=== PATIENT | female | born 1970 | race Caucasian/White ===

== ENCOUNTER → 2017-06-16 14:28 | Outpatient (CLI) | payer OTHER, SELFPAY ==
[2017-06-16 15:55] LABS: AST(SGOT) 18 U/L (15-37); Alanine Aminotransfer ALT/SGPT 44 U/L (13-56); Albumin, Serum 3.5 g/dL (3.2-5.0); Alkaline Phosphatase 77 U/L (45-117); Bilirubin, Direct 0.14 mg/dL (0.00-0.30); Protein, Total 6.5 g/dL (6.4-8.2)
== END ==
PROVIDERS: Family Provider Family Medicine; PCP Family Medicine; Visit Provider Family Medicine
DX: J45.909 Unspecified asthma, uncomplicated (principal)
CPT/HCPCS: 36415; 80076

== ENCOUNTER → 2017-07-07 14:25 | Outpatient (CLI) | payer OTHER, SELFPAY | PROVIDERS: Visit Provider Nurse Practitioner Women's Health | DX: N94.9 Unspecified condition associated with female genital organs and menstrual cycle (principal) | CPT/HCPCS: 87070; 87077; 87106; 87205 ==

== ENCOUNTER → 2017-08-14 07:26 | Outpatient (CLI) | payer OTHER, SELFPAY ==
--- NOTE | 2017-08-14 07:29 | BI_ITS ---
MAMMOGRAPHY - BILATERAL SCREENING REASON FOR EXAM: Female, 47 years old. Routine annual screening examination. PERTINENT HISTORY: Non-contributory. TECHNIQUE: Digital bilateral breast delon (3D mammographic acquisition) in the CC and MLO projections. 2-D mediolateral oblique (MLO) and craniocaudad (CC) views of both breasts were obtained. CAD: Full Field Digital Mammography with Computer Added Detection was performed. COMPARISON: Comparison is made with prior abdomen examination dated March 28, 2016. FINDINGS: Breast Composition: The breasts are heterogeneously dense, which may obscure small masses. There are no dominant masses or suspicious calcifications. No other significant abnormalities are identified. There has been no significant change since the prior study. BI/SCREENING MAMM (CAD), BILAT IMPRESSION: Stable bilateral screening mammogram. Yearly follow-up mammogram recommended. (A) ASSESSMENT CATEGORY: BIRADS Category 1: Negative. A letter regarding these results will be sent to the patient by the facility within 30 days. Approximately 10% of breast cancers are not detected by mammography. A normal mammogram should not delay biopsy of a clinically suspicious abnormality. [id number] Electronically Signed: Quintin Bray MD at 9:26 EDT Tel [phone], Service support ,
== END ==
PROVIDERS: Family Provider Family Medicine; PCP Family Medicine; Visit Provider Obstetrics & Gynecology
DX: Z12.31 Encounter for screening mammogram for malignant neoplasm of breast (principal)
CPT/HCPCS: 77063; 77067

== ENCOUNTER → 2018-02-19 14:43 | Outpatient (CLI) | payer OTHER, SELFPAY ==
[2017-09-29 08:01] VITALS: BMI 43.0
--- NOTE | 2018-02-19 14:46 | RAD_ITS ---
HISTORY: PBack PainRAD Spine COMPARISON: None FINDINGS: XR Spine Lumbar 5 views The lumbar vertebra show normal height and alignment. Disc space heights appear preserved. The posterior elements appear intact. No spondylolisthesis. SI joints appear preserved. Surgical clips within the gallbladder fossa. IMPRESSION: Normal lumbar spine. at 0351 Reported and signed by: Ernie Crenshaw MD Electronically Signed: Ernie Crenshaw, at 3:50 EST Tel , Service support , RAD/L/S Spine Min 4 Views
== END ==
PROVIDERS: Family Provider Family Medicine; PCP Family Medicine; Referring Provider Family Medicine; Visit Provider Family Medicine
DX: M54.5 Low back pain (principal); M54.16 Radiculopathy, lumbar region
CPT/HCPCS: 72110

== ENCOUNTER 2018-03-02 17:00 | Outpatient (RCR) | payer OTHER, SELFPAY ==
--- NOTE | 2018-01-15 10:08 | HP.PTEVAL_ITS ---
Patient's Visit Information AMINATA GLEASON is a 47 year old F referred to Physical Therapy by Manuel Ratliff with a diagnosis of Lumbar strain. Date of Evaluation: 01/15/18 Physical Therapist: Shivani Cohen - Visit Plan Frequency: 1-2x /Week Duration: 6 Weeks Plan: 1-2X/ week to see if extension centralization helps with back pain, core stability, LE strength (mostly geared to HEP) and modalities if needed. Also work on postural strength - Subjective Subjective: Pt has been having back pain since July or August and started in one of her hips when she would sit for a while and then go to stand and it would hurt. OFF and on back pain for years. She did a walk in Sep and since then her LB and the other hip started to hurt her. IF she bend just right she will get pain shoot across the LB. Sometimes she will get pain down the legs to mid thigh. Sometimes it is a dull achy pain and sometimes pins and hot in LB. Her pain comes and goes. Not in pain right now. She sits a lot. 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 SHe has been seeing a chiropractor and is helping some but just not improving like she should. Pt is sometimes sleeping at night. It hurts when she sits for awhile and then she stands up and she limps around and then when up for awhile she can walk better. She has tried ice, chiro, massage/heat chair..... she is not doing any ex outside of here. It takes a little bit to go up stairs ( recip up and 1 at a time down)...sometimes uses a railing. Pt reports that all her joints hurt. She is fatigued a lot. Hysterectomy in June of 2016..... - Pain Back Pain Pain Intensity (Out of 10): 0 leg pain Pain Intensity (Out of 10): 0 - Objective Gait: decrease stance time on the R...some increase veering at times with gait. LE MMT: B hip flex 4-/5, knee ext R 4/5 and L 4-/5, R knee flex 4/5 and L 4- /5, B hip abd 4-/5, B hip ext 3-/5, Bridging ( decrease AROM and some increase pain). Trunk AROM: flex 100%, ext 25%, ROT B 75%, SB B 50% (with increase pain). Prone press 2 X 10 ( pt was no better and no worse) She thought that maybe her leg was a little less weak after the press ups. Instructed pt in how to sit with good posture with towel roll at computer desk, car etc - Goals Goal 1:: I HEP Goal Time Frame: 4-6 Weeks Goal 2:: Sit with upright posture during treatment sessions Goal Time Frame: 4-6 Weeks Goal 3:: Decrease back pain to 1/10 through out her workday with good posture Goal Time Frame: 4-6 Weeks Goal 4:: Increase LE strength by 1/2 muscle grade and core strength (at time of eval: LE MMT: B hip flex 4-/5, knee ext R 4/5 and L 4-/5, R knee flex 4/5 and L 4-/5, B hip abd 4-/5, B hip ext 3-/5, Bridging ( decrease AROM and some increase pain) Goal Time Frame: 4-6 Weeks - Rehabilitation Potential Rehabilitation Potential: Good - Anticipated Interventions Patient/Client Instruction: Educate patient on: Condition, Plan of Care For the Purpose of:: To decrease pain, To increase ROM, To improve nutrient delivery to tissue, To improve muscle performance and motor function, To improve ability to perform ADL's, To increase tolerance to activity/condition/position, To improve performance and independence with ADL's, To decrease level of supe rvision to perform tasks, To improve ability of physical actions for home/community/work/leisure, To improve health of tissue, To increase flexibility/ROM Therapeutic Exercise to Include: Strength training, Body mechanics, Postural training, Flexibilty training, In an aquatic setting, Active ROM, Dynamic Lumbar Stabilization, Priscilla Exercises For the Purpose of:: To decrease pain, To increase ROM, To improve nutrient delivery to tissue, To improve muscle performance and motor function, To improve ability to perform ADL's, To increase tolerance to activity/condition/position, To improve performance and independence with ADL's, To improve ability of physical actions for home/community/work/leisure Thank you for the opportunity to evaluate your patient. For Medicare and Medicare HMO plans, please review the plan of care and approve it. It will need to be FAXED BACK to us at [phone] for Medicare purposes. Please let me know if there are questions or concerns regarding this plan of care. Physician Signature: Date:
--- NOTE | 2018-03-02 17:16 | HP.PTDCSUM ---
HP - PT D/C Summary It has been my pleasure to treat AMINATA GLEASON under orders from Manuel Ratliff, for the diagnosis of Lumbar strain for a total of 6 visit(s). Discharge Date: 03/02/18 Please see the following information for a summary of their discharge status. - Subjective Subjective: Pt was approved for MRI which is . Pt feels that back pain has shifted almost more in her tailbone now and it is almost numb. - Pain Back Pain Pain Intensity (Out of 10): 4 leg pain Pain Intensity (Out of 10): 0 - Overall Improvement % Improvement: 0 - Objective Objective/Function: We were unable to do strengthening due to pain level. Posture: pt sits with upright posture during treatment sessions. Pain goal was not achieved. - Goals Goal 1:: I HEP Goal Progress: Goal Met Goal 2:: Sit with upright posture during treatment sessions Goal Progress: Goal Met Goal 3:: Decrease back pain to 1/10 through out her workday with good posture Goal Progress: Not Progressing Goal 4:: Increase LE strength by 1/2 muscle grade and core strength (at time of eval: LE MMT: B hip flex 4-/5, knee ext R 4/5 and L 4-/5, R knee flex 4/5 and L 4-/5, B hip abd 4-/5, B hip ext 3-/5, Bridging ( decrease AROM and some increase pain) Goal Progress: Not Progressing - Plan Plan: DC PT to physician reassessment and MRI. - D/C Information Discharge Comments: DC PT to physician reassessment and MRI If there are questions or concerns regarding this patient's physical therapy, please feel free to call me at [phone]. Thank you for the referral of this patient. Sincerely, Shivani Cohen, MPT
== END 2018-03-02 19:00 | disposition home or self-care (01) ==
LOC: PT 17:00
PROVIDERS: Family Provider Family Medicine; PCP Family Medicine; Referring Provider Chiropractor; Visit Provider Chiropractor
DX: S33.5XXD Sprain of ligaments of lumbar spine, subsequent encounter (principal)
CPT/HCPCS: 97110; 97161; 97530

== ENCOUNTER → 2018-03-04 17:12 | Outpatient (CLI) | payer OTHER, SELFPAY ==
--- NOTE | 2018-03-04 17:13 | MRI_ITS ---
STUDY: MRI LUMBAR SPINE WITHOUT CONTRAST REASON FOR EXAM: Female, 47 years old. Bilateral radiculopathy, worse on the right TECHNIQUE: Standardized fat and water weighted pulse sequences were obtained in the sagittal and axial planes. COMPARISON: Radiographs 02/19/2018 FINDINGS: Transitional anatomy is present. For the purposes of the numbering scheme used in this report, partial lumbarization of S1 is assumed. T12-L1: Normal endplates. Normal disc height, hydration and morphology. Normal bilateral facet joints. Normal central canal and bilateral lateral recesses. Normal bilateral intervertebral neural foramina. Normal lumbar lordosis. There is no substantial scoliosis. Normal conus medullaris that terminates at the L1-2 level. L1-2: Normal endplates. Normal disc height, hydration and morphology. Normal bilateral facet joints. Normal central canal and bilateral lateral recesses. Normal bilateral intervertebral neural foramina. L2-3: Normal endplates. Normal disc height, hydration and morphology. Normal bilateral facet joints. Normal central canal and bilateral lateral recesses. Normal bilateral intervertebral neural foramina. L3-4: Normal endplates. Normal disc height, hydration and morphology. Normal bilateral facet joints. Normal central canal and bilateral lateral recesses. Normal bilateral intervertebral neural foramina. L4-5: Normal disc. Bilateral facet hypertrophy. 8 x 3 mm facet synovial cyst on the right without compressive sequelae. L5-S1: Disc desiccation. Bulging annulus with minimal bilateral foraminal stenoses. Bilateral facet hypertrophy and ligamentum flavum hypertrophy. Normal visualized sacral ala. Normal visualized paraspinous soft tissue structures. MRI/Spine Lumbar (Routine) IMPRESSION: Multilevel degenerative disease as described. Small right-sided facet synovial cyst on the right at the L4-5 level. No evidence of nerve root impingement. Electronically Signed: Chevy Thompson MD at 22:24 EST Tel , Service support ,
== END ==
PROVIDERS: Family Provider Family Medicine; PCP Family Medicine; Referring Provider Family Medicine; Visit Provider Family Medicine
DX: M54.5 Low back pain (principal)
CPT/HCPCS: 72148

== ENCOUNTER → 2018-06-29 | Outpatient (CLI) | payer OTHER, SELFPAY ==
[2017-09-29 08:01] VITALS: BMI 43.0
[2018-06-29 08:36] LABS: Absolute Lymphocyte Count 0.93 X10^3/ul (0.83-4.51); Absolute Neutrophil Count 3.9 X10^3/uL (2.0-7.7); Basophil# 0.02 X10^3/uL; Basophil% 0.4 % (0-1); Eosinophil# 0.09 X10^3/uL; Eosinophils% 1.7 % (0-5); Hematocrit 40.9 % (37-47); Hemoglobin 13.3 g/dl (12.0-15.0); Lymphocyte # 0.93 X10^3/ul (4.0); Lymphocyte % 17.2 % (19-41); Mean Corp Hgb Conc 32.5 g/gl (32-36); Mean Corpuscular Hgb 27.6 pg (27.0-32.0); Mean Corpuscular Volume 84.9 fL (81-99); Mean Platelet Vol. 10.6 fl (6.2-12.0); Monocyte# 0.47 X10^3/uL; Monocyte% 8.7 % (0-10); Neutrophil # 3.89 X10^3/uL (2.7-7.7); Platelet Count 216 K/mm3 (150-450); RBC Distribution Width CV 13.5 % (11.6-14.6); RBC Distribution Width SD 41.8 fl (35.1-43.9); Red Blood Count 4.82 M/mm3 (4.2-5.4); White Blood Count 5.4 K/mm3 (4.4-11.0)
[2018-06-29 08:38] LABS: POSITIVE COUNT NO; POSITIVE DIFFERENTIAL NO; POSITIVE MORPHOLOGY NO
[2018-06-29 09:05] LABS: Vitamin D,25 Hydroxy 11.4 ng/mL (29.95-100.01)
[2018-06-29 09:11] LABS: ALB/GLOB Ratio 1.2 RATIO (0.9-2.4); AST(SGOT) 26 U/L (15-37); Alanine Aminotransfer ALT/SGPT 63 U/L (13-56); Albumin, Serum 3.8 g/dL (3.2-5.0); Alkaline Phosphatase 80 U/L (45-117); Anion Gap 5 (5-15); BUN 13 mg/dL (7-18); BUN/Creat Ratio 18.3 RATIO (10-20); Calcium,Total 8.7 mg/dL (8.5-10.1); Chloride 105 mmol/L (98-107); Cholesterol 125 mg/dL (200); Creatinine, Serum 0.71 mg/dL (0.55-1.02); EST Glomerular Filtration Rate 94 mL/min (>60); Est Glom Filt Rate - Afr Amer 113 mL/min (>60); Globulin 3.1 g/dL (2.2-4.2); Glucose 104 mg/dL (74-106); High Density Lipoprotein 36 mg/dL; Potassium 4.2 mmol/L (3.5-5.1); Protein, Total 6.9 g/dL (6.4-8.2); Sodium Level 139 mmol/L (136-145); T4 Free Direct 1.23 ng/dL (0.76-1.46); Thyroid Stim Hormone (TSH) 2.26 uIU/mL (0.358-3.74); Triglycerides 101 mg/dL; Very Low Density Lipoprotein 20 mg/dL (5-40)
== END | disposition home or self-care (01) ==
LOC: LAB 07:41
PROVIDERS: Family Provider Family Medicine; PCP Family Medicine; Referring Provider Family Medicine; Visit Provider Family Medicine
DX: K75.81 Nonalcoholic steatohepatitis (NASH) (principal); R53.83 Other fatigue; R73.01 Impaired fasting glucose
CPT/HCPCS: 36415; 80053; 80061; 82306; 84439; 84443; 85025

== ENCOUNTER → 2018-11-05 | Outpatient (CLI) | payer OTHER, SELFPAY ==
--- NOTE | 2018-11-05 08:01 | BI_ITS ---
MAMMOGRAPHY - BILATERAL SCREENING REASON FOR EXAM: Female, 48 years old. Routine annual screening examination. PERTINENT HISTORY: Non-contributory. TECHNIQUE: Digital bilateral breast cirilo (3D mammographic acquisition) in the CC and MLO projections. 2-D mediolateral oblique (MLO) and craniocaudad (CC) views of both breasts were obtained. CAD: Full Field Digital Mammography with Computer Added Detection was performed. COMPARISON: Comparison is made with prior study dated August 14, 2017 and March 24, 2013. FINDINGS: Breast Composition: The breasts are heterogeneously dense, which may obscure small masses. There are no dominant masses or suspicious calcifications. Stable bilateral benign-appearing axillary lymph nodes. No other significant abnormalities are identified. There has been no significant change since the prior study. BI/SCREEN MAMM (CAD) W/CIRILO BILAT IMPRESSION: Stable bilateral screening mammogram. Yearly follow-up mammogram recommended. (A) ASSESSMENT CATEGORY: BIRADS Category 2: Benign. A letter regarding these results will be sent to the patient by the facility within 30 days. Approximately 10% of breast cancers are not detected by mammography. A normal mammogram should not delay biopsy of a clinically suspicious abnormality. [id number] Electronically Signed: Quintin Bray, at 10:39 EDT , Service support ,
== END | disposition home or self-care (01) ==
LOC: OPBI 08:01
PROVIDERS: Family Provider Family Medicine; PCP Family Medicine; Referring Provider Obstetrics & Gynecology; Visit Provider Obstetrics & Gynecology
DX: Z12.31 Encounter for screening mammogram for malignant neoplasm of breast (principal)
CPT/HCPCS: 77063; 77067

== ENCOUNTER → 2018-12-23 | Outpatient (CLI) | payer OTHER, SELFPAY ==
[2018-12-23 12:18] LABS: Absolute Lymphocyte Count 1.35 X10^3/uL (0.83-4.51); Absolute Neutrophil Count 4.9 X10^3/uL (2.0-7.7); Basophil# 0.04 X10^3/uL; Basophil% 0.6 % (0-1); Eosinophil# 0.17 X10^3/uL; Eosinophils% 2.5 % (0-5); Hematocrit 41.4 % (37-47); Hemoglobin 12.9 g/dL (12.0-15.0); Lymphocyte # 1.35 X10^3/ul (4.0); Lymphocyte % 19.7 % (19-41); Mean Corp Hgb Conc 31.2 g/dL (32-36); Mean Corpuscular Hgb 27.2 pg (27.0-32.0); Mean Corpuscular Volume 87.2 fL (81-99); Mean Platelet Vol. 10.7 fl (6.2-12.0); Monocyte% 5.8 % (0-10); NRBC Flagged by Analyzer 0 % (0-5); Neutrophil # 4.88 X10^3/uL (2.7-7.7); Platelet Count 243 K/mm3 (150-450); RBC Distribution Width CV 12.6 % (11.6-14.6); RBC Distribution Width SD 40.1 fl (35.1-43.9); Red Blood Count 4.75 M/mm3 (4.2-5.4); White Blood Count 6.9 K/mm3 (4.4-11.0)
[2018-12-23 12:27] LABS: AST(SGOT) 11 U/L (15-37); Alanine Aminotransfer ALT/SGPT 32 U/L (13-56); Albumin, Serum 3.6 g/dL (3.2-5.0); Alkaline Phosphatase 86 U/L (45-117); Anion Gap 5 (5-15); BUN 17 mg/dL (7-18); Calcium,Total 9.1 mg/dL (8.5-10.1); Chloride 104 mmol/L (98-107); Creatinine, Serum 0.63 mg/dL (0.55-1.02); EST Glomerular Filtration Rate 107 mL/min (>60); Est Glom Filt Rate - Afr Amer 130 mL/min (>60); Globulin 3.6 g/dL (2.2-4.2); Glucose 96 mg/dL (74-106); Potassium 4.4 mmol/L (3.5-5.1); Protein, Total 7.2 g/dL (6.4-8.2); Sodium Level 138 mmol/L (136-145)
[2018-12-23 12:34] LABS: Vitamin B12 374 pg/mL (211-911); Vitamin D,25 Hydroxy 24.2 ng/mL (29.95-100.01)
== END | disposition home or self-care (01) ==
LOC: BFHLAB 08:13
PROVIDERS: Family Provider Family Medicine; PCP Family Medicine; Visit Provider Family Medicine
DX: K75.81 Nonalcoholic steatohepatitis (NASH) (principal); E55.9 Vitamin D deficiency, unspecified; R53.83 Other fatigue
CPT/HCPCS: 36415; 80053; 82306; 82607; 85025

== ENCOUNTER 2019-06-08 02:46 | Emergency (ER) | payer SELFPAY ==
[2019-06-08 02:47] VITALS: BP 180/80; PULSE 82; RESP 20; TEMP 36.6; O2SAT 98; BMI 48.7
--- NOTE | 2019-06-08 02:49 | ED.RN ---
RN CALLED FOR EKG, PULLED OLD EKGS FOR
--- NOTE | 2019-06-08 02:55 | CT_ITS ---
STUDY: CTA CHEST REASON FOR EXAM: Female, 48 years old. Chest heaviness. DVT. RADIATION DOSAGE (If Supplied By Facility): CTDIvol = ( 11.48 ) mGy, DLP = ( 480.39 ) mGycm TECHNIQUE: The examination was performed with the intravenous administration of IV 100mL Isovue-370. Post-processing of the angiographic images was performed, with MIP reconstructed images. Individualized dose optimization techniques were used for this CT. COMPARISON: Chest radiograph 08/19/2010 FINDINGS: Heart and great vessels: Heart size normal. No dissection or aneurysm of the thoracic aorta. No pulmonary embolus. No evidence of right heart strain. Lungs, pleura: No pneumonia, edema, or acute abnormality in the lungs. No pleural effusion. No pneumothorax. Mediastinum: No adenopathy or mass or hematoma. Osseous:No fracture or acute osseous abnormality. Chest wall: No concerning findings. Upper abdomen: No acute findings. Hepatic steatosis partially visible. CT/CTA Chest W/WO Contrast IMPRESSION: No pulmonary embolus or thoracic aortic dissection or aneurysm. No acute findings. Electronically Signed: Manuel Blount, at 4:12 EDT Tel , Service support ,
--- NOTE | 2019-06-08 02:55 | EKG12_ITS ---
Test Reason : CHESTHEAVYNESS Blood Pressure : / mmHG Vent. Rate : 075 BPM Atrial Rate : 075 BPM P-R Int : 124 ms QRS Dur : 082 ms QT Int : 386 ms P-R-T Axes : 044 008 055 degrees QTc Int : 431 ms Normal sinus rhythm Minimal voltage criteria for LVH, may be normal variant Borderline ECG Confirmed by GIOVANI SWANSON ([id number]), editor school photograph THU PRIEST ([id number]) on 06/09/2019 10:12:40 AM Referred By: ASTER Confirmed By:GIOVANI SWANSON
[2019-06-08] MEDS: Aspirin 81 MG TAB.CHEW 324 MG PO (02:57)
[2019-06-08 03:02] LABS: Absolute Neutrophil Count 4.7 X10^3/uL (2.0-7.7); Basophil# 0.04 X10^3/uL; Basophil% 0.6 % (0-1); Eosinophil# 0.22 X10^3/uL; Eosinophils% 3.3 % (0-5); Hematocrit 41.3 % (37-47); Hemoglobin 13.3 g/dL (12.0-15.0); Lymphocyte % 16.3 % (19-41); Mean Corp Hgb Conc 32.2 g/dL (32-36); Mean Corpuscular Hgb 27.6 pg (27.0-32.0); Mean Corpuscular Volume 85.7 fL (81-99); Mean Platelet Vol. 9.7 fl (6.2-12.0); Monocyte# 0.66 X10^3/uL; Monocyte% 9.8 % (0-10); NRBC Flagged by Analyzer 0 % (0-5); Neutrophil # 4.69 X10^3/uL (2.7-7.7); Neutrophil % 69.7 % (47-70); Platelet Count 194 K/mm3 (150-450); RBC Distribution Width CV 12.3 % (11.6-14.6); RBC Distribution Width SD 38.1 fl (35.1-43.9); Red Blood Count 4.82 M/mm3 (4.2-5.4); White Blood Count 6.7 K/mm3 (4.4-11.0)
[2019-06-08 03:18] LABS: Anion Gap 6 (5-15); BUN 13 mg/dL (7-18); BUN/Creat Ratio 18.8 RATIO (10-20); Calcium,Total 9.2 mg/dL (8.5-10.1); Chloride 106 mmol/L (98-107); Creatinine, Serum 0.69 mg/dL (0.55-1.02); EST Glomerular Filtration Rate 96 mL/min (>60); Est Glom Filt Rate - Afr Amer 116 mL/min (>60); Estimated Creatinine Clearance 75.24 ml/min; Glucose 120 mg/dL (74-106); Potassium 4.2 mmol/L (3.5-5.1); Sodium Level 138 mmol/L (136-145)
[2019-06-08] MEDS: 0.9% Normal Saline 1,000 ML 150 ML IV (03:25)
[2019-06-08 03:56] VITALS: BP 154/97; PULSE 73
[2019-06-08] MEDS: Nitroglycerin SL (ED/IMG/CATH) 0.4 MG TABLET SUBLINGUAL ×2 (03:56→04:05)
[2019-06-08 04:04] VITALS: BP 149/89; PULSE 77; RESP 14; O2SAT 96
[2019-06-08 04:05] VITALS: BP 149/89; PULSE 75
[2019-06-08] MEDS: Acetaminophen 325 MG Tablet 650 MG PO (04:13)
--- NOTE | 2019-06-08 04:23 | ED.DCSUM_ITS ---
- ER Visit Summary Date of Service: 06/08/19 Chief Complaint: [Chest pain] History of Present Illness: The patient is a 48 F [presents to the emergency department complaint of chest discomfort that started 2 days ago. Patient describes continuous discomfort kind of in the center of her chest and into her left chest that is sharp at times and heavy at times. Patient states she just did not feel well today. Patient recently diagnosed with shingles to her left upper back and was started on valacyclovir. Patient states her symptoms worsened as far as her chest pain since taking the medications. Patient also states that she was diagnosed with a superficial clot in her right arm by her primary care physician about 3 weeks ago when she was started on aspirin and she states that the swelling in the arm is improved significantly and her symptoms are of improved significantly. Patient denies recent travel or surgery. She denies any nausea or vomiting or shortness of breath with this discomfort. Pain seems to be at times worse with activity. She currently rates her discomfort about a 4 5 out of 10. Patient has history of asthma. No heart history. No family history of heart disease. No history of hypertension, diabetes, or hypercholesterolemia. Patient is not a smoker.] Physical Examination: [HEENT-PERRLA, EOMI. Cranial nerves II through XII grossly intact. TMs clear. Mucous membranes moist. No adenopathy. Cardiovascular-regular rate and rhythm without murmur or ectopy Lungs-clear to auscultation, chest wall stable without crepitus or subcu emphysema Abdomen-normoactive bowel sounds, soft, nontender, no rebound or rigidity, no peritoneal signs. Extremities-intact ?4, normal range of motion, normal pulses, atraumatic. Patient does have some edema of the right upper arm medial aspect.] Test Results: [EKG obtained arrival shows sinus rhythm with a ventricular rate of 75 bpm with minimal LVH criteria. CBC with differential was normal. Chemistries unremarkable. Troponin less than 0.015. CTA of the chest showed no evidence for PE or dissection.] Emergency Department Course and Treatment: [Patient had an IV line established. Patient placed on threat monitoring analyst. Patient was given aspirin p.o. Did give her sublingual nitro which gave her headache but really did not change her discomfort.] Treatment Plan: [At this point patient has a SUSANNE risk score of 1 because of the aspirin she has been taken for her right arm. She is considered low risk for cardiac event. She has had ongoing continuous pain for over 2 days with a normal EKG and troponin. At this point I do not feel she requires admission and can follow-up with her primary care physician if symptoms persist.] It is possible some of her symptoms may be related to her herpes zoster. Disposition: [] Discharged home in stable condition. Patient advised to return if worsening pain, increasing shortness of breath, diaphoresis, nausea or vomiting, or condition should worsen anyway. Impression: [Chest pain-etiology uncertain] This note was generated with [employer] dictation software. It may contain incorrect words, spelling, and punctuation that were not noted in review of the chart prior to signing ED Disposition - Plan for ED Patient: Referrals: Bala Oliveira MD [Primary Care Provider] -
--- NOTE | 2019-06-08 04:27 | ED.DEP ---
ED Disposition - Plan for ED Patient: Instructions: ED Chest Pain Atypical Unkn Cause Referrals: Bala Oliveira MD [Primary Care Provider] - 3-5 Days
[2019-06-08 04:31] VITALS: BP 132/76; PULSE 66; RESP 15; O2SAT 95
== END 2019-06-08 04:35 | disposition home or self-care (01) ==
LOC: ED 04:04
PROVIDERS: Emergency Provider Emergency Medicine; PCP Family Medicine
DX: R07.89 Other chest pain (principal); J45.909 Unspecified asthma, uncomplicated
CPT/HCPCS: 71275; 80048; 84484; 85025; 93005; 96360; 99285; J7030; Q9967; A4216

== ENCOUNTER → 2019-08-25 | Outpatient (CLI) | payer SELFPAY ==
[2019-08-18 08:18] VITALS: BMI 48.7
--- NOTE | 2019-08-25 07:05 | BI_ITS ---
MAMMOGRAPHY - BILATERAL SCREENING REASON FOR EXAM: Female, 49 years old. Routine annual screening examination. PERTINENT HISTORY: Non-contributory. TECHNIQUE: Digital bilateral breast cirilo (3D mammographic acquisition) in the CC and MLO projections. 2-D mediolateral oblique (MLO) and craniocaudad (CC) views of both breasts were obtained. CAD: Full Field Digital Mammography with Computer Added Detection was performed. COMPARISON: Comparison is made with prior study November 05, 2018 and August 14, 2017. FINDINGS: Breast Composition: The breasts are heterogeneously dense, which may obscure small masses. There are no dominant masses or suspicious calcifications. Stable small bilateral benign-appearing axillary lymph nodes. No other significant abnormalities are identified. There has been no significant change since the prior study. BI/SCREEN MAMM (CAD) W/CIRILO BILAT IMPRESSION: Stable bilateral screening mammogram. Yearly follow-up mammogram recommended. (A) ASSESSMENT CATEGORY: BIRADS Category 2: Benign. A letter regarding these results will be sent to the patient by the facility within 30 days. Approximately 10% of breast cancers are not detected by mammography. A normal mammogram should not delay biopsy of a clinically suspicious abnormality. [id number] Electronically Signed: Quintin Bray, at 8:11 EDT , Service support ,
== END | disposition home or self-care (01) ==
LOC: OPBI 07:05
PROVIDERS: PCP Family Medicine; Referring Provider Obstetrics & Gynecology; Visit Provider Obstetrics & Gynecology
DX: Z12.31 Encounter for screening mammogram for malignant neoplasm of breast (principal)
CPT/HCPCS: 77063; 77067

== ENCOUNTER 2019-10-07 19:49 | Emergency (ER) | payer OTHER, SELFPAY ==
[2019-08-18 08:18] VITALS: BMI 48.7
[2019-10-07 19:49] VITALS: BP 190/95; PULSE 85; RESP 18; TEMP 36.4; O2SAT 97; BMI 49.1
--- NOTE | 2019-10-07 20:00 | EKG12_ITS ---
Test Reason : CP Blood Pressure : / mmHG Vent. Rate : 078 BPM Atrial Rate : 078 BPM P-R Int : 134 ms QRS Dur : 088 ms QT Int : 392 ms P-R-T Axes : 060 032 060 degrees QTc Int : 446 ms Normal sinus rhythm Possible Left atrial enlargement Septal infarct , age undetermined Abnormal ECG Confirmed by AMBIKA GIORDANO, JAMAL ([id number]), assistant production editor JENNIFER CEDILLO ([id number]) on 10/10/2019 2:35:26 PM Referred By: BB Confirmed By:JAMAL APPLE MD
--- NOTE | 2019-10-07 20:14 | RAD_ITS ---
STUDY: X-RAY CHEST REASON FOR EXAM: Female, 49 years old. Chest pain on and off x 3 weeks. today feels like its fluttering. TECHNIQUE: Frontal view COMPARISON: 08/19/2010 FINDINGS: The lungs are clear and expanded. There is no demonstrated pleural abnormality. Normal size heart. Normal mediastinum and taylor. Normal visualized pulmonary arteries. Normal visualized aortic arch and descending thoracic aorta. Normal visualized thoracic spine. Normal visualized ribs, clavicles, and shoulders. There is no demonstrated abnormality of the visualized soft tissue structures of the upper abdomen. RAD/Chest 1 View (Portable) IMPRESSION: Normal x-ray examination of the chest. Electronically Signed: Ulysses Jean DO at 20:25 EDT Tel [phone], Service support ,
--- NOTE | 2019-10-07 20:42 | ED.VIS.GEN ---
History of Present Illness Chief Complaint: Chest Pain Informant: Patient Narrative: Patient states for the past 3 weeks she has had intermittent left lower chest pain. States it feels like a dull ache sometimes at there for seconds sometimes there for hours. For the first couple weeks it seemed like it was there more frequently than it has been for the past week. Today she has felt a fluttering sensation in that same area. She states that the chest pain is occasionally made worse when she bends over and with certain movements but not to the touch. She has not had this before. She denies any dyspnea. She recently discontinued gabapentin but states that symptoms were ongoing even while on gabapentin. She is a non-smoker. No DVT PE risk factors. Past Medical History - Allergies and Home Meds Allergies/Adverse Reactions: Allergies No Known Allergies Allergy (Verified 10/07/19 19:51) Primary Care Physician: Bala Oliveira MD [Primary Care Provider] - Smoking Status: Former smoker Review of Systems General: Denies: Chills, Fever, Sweats Eyes: Denies: Visual changes - bilaterally, Diplopia ENT: Denies: Rhinorrhea, Sore throat Cardiovascular: Reports: Chest pain, Palpitations. Denies: Heart racing Respiratory: Denies: Dyspnea, Cough, Dyspnea on exertion Gastrointestinal: Denies: Abdominal pain, Nausea, Vomiting, Diarrhea, Melena, Hematochezia Genitourinary: Denies: Dysuria, Hematuria, Frequency Musculoskeletal: Denies: Back pain, Extremity Pain Skin: Denies: Rash, Wounds Neurological: Denies: Headache, Weakness, Numbness Physical Exam Vital Signs/Narrative: Vital Signs Temp Pulse Resp BP Pulse Ox 10/07/19 19:49 97.6 F L 85 18 190/95 H 97 Inital Vital Signs reviewed: Yes General: Well nourished, Well developed, Obese, No Acute Distress Head: Normocephalic, Atraumatic Eyes: Perrl, EOMI ENT: Moist mucous membranes, No rhinorrhea Neck: Supple, Nontender Cardiovascular: Regular rate, Regular rhythm, No murmurs Respiratory: No distress, CTA bilaterally, Chest nontender Abdomen: Soft, Nontender, Nondistended, Normal bowel sounds Back: Nontender, Normal Inspection Extremities: Nontender, No edema Skin: Normal color, No rash Neurological: Alert, Oriented x3, Cranial nerves II-XII grossly intact, Normal Strength, Normal Sensation Psychological: Normal affect, Normal Mood Diagnostic/Tx/Re-eval Clinical Impression(s) from Imaging Studies Chest X-Ray 10/07/19: IMPRESSION: Normal x-ray examination of the chest. Electronically Signed: Ulysses Jean DO at 20:25 EDT Tel [phone], Service support , Laboratory Last Values WBC 7.7 K/mm3 (4.4-11.0) 10/07/19: RBC 4.70 M/mm3 (4.2-5.4) 10/07/19: Hgb 13.1 g/dL (12.0-15.0) 10/07/19: Hct 40.7 % (37-47) 10/07/19: MCV 86.6 fL (81-99) 10/07/19: MCH 27.9 pg (27.0-32.0) 10/07/19 MCHC 32.2 g/dL (32-36) 10/07/19: RDW Std Deviation 39.7 fl (35.1-43.9) 10/07/19: RDW Coeff of Rinku 12.5 % (11.6-14.6) 10/07/19: Plt Count 235 K/mm3 (150-450) 10/07/19: MPV 10.7 fl (6.2-12.0) 10/07/19: Immature Gran % (Auto) 0.300 % (0.0-0.9) 10/07/19: Neut % (Auto) 68.5 % (47-70) 10/07/19: Lymph % (Auto) 20.1 % (19-41) 10/07/19: Haines % (Auto) 8.0 % (0-10) 10/07/19: Eos % (Auto) 2.7 % (0-5) 10/07/19: Baso % (Auto) 0.4 % (0-1) 10/07/19: Absolute Neuts (auto) 5.3 X10^3/uL (2.0-7.7) 10/07/19 20:31 Absolute Lymphs (auto) 1.54 X10^3/uL (0.83-4.51) 10/07/19 20: Nucleated RBC % 0 % (0-5) 10/07/19 20:31 Sodium 138 mmol/L (136-145) 10/07/19 20:31 Potassium 3.8 mmol/L (3.5-5.1) 10/07/19 20: Chloride 104 mmol/L (98-107) 10/07/19 20: Carbon Dioxide 29.0 mmol/L (21.0-32.0) 10/07/19 20:31 Anion Gap 5 (5-15) 10/07/19 20: BUN 11 mg/dL (7-18) 10/07/19 20: Creatinine 0.64 mg/dL (0.55-1.02) 10/07/19 20: Estim Creat Clear Calc 80.24 ml/min 10/07/19 20:31 Est GFR (MDRD) Af Amer 128 mL/min (>60) 10/07/19 20: Est GFR (MDRD) Non-Af 106 mL/min (>60) 10/07/19 20: BUN/Creatinine Ratio 17.3 RATIO (10-20) 10/07/19: Glucose 123 mg/dL (74-106) H 10/07/19 20: Calcium 9.1 mg/dL (8.5-10.1) 10/07/19 20: Troponin I < 0.015 ng/mL (<0.045) 10/07/19 20: - EKG Initial EKG Interpretation: Sinus Rhythm - EKG demonstrates a normal sinus rhythm at a rate of 78. There is no ectopy or concerning features of ACS. - Medical Decision Making She has remained in a normal sinus rhythm as long as she is been here on the monitor. She has a KG with no concerning features and a troponin that is normal. Her symptoms seem to be more musculoskeletal and that they are very localized to one spot and are worse with certain movements including bending over. I recommend she follow-up with primary care return if worsening or concerns patient is comfortable with this plan. SUSANNE score of 0 and a heart score of 2. ED Disposition - Plan for ED Patient: Disposition: Home or Assisted Living Diagnosis: Chest pain Instructions: ED Chest Pain Atypical Unkn Cause Referrals: Bala Oliveira MD [Primary Care Provider] - 1 Week
[2019-10-07 20:54] VITALS: BP 143/71; PULSE 67; RESP 15; O2SAT 96
[2019-10-07 20:57] LABS: Absolute Lymphocyte Count 1.54 X10^3/uL (0.83-4.51); Absolute Neutrophil Count 5.3 X10^3/uL (2.0-7.7); Basophil# 0.03 X10^3/uL; Basophil% 0.4 % (0-1); Eosinophil# 0.21 X10^3/uL; Eosinophils% 2.7 % (0-5); Hematocrit 40.7 % (37-47); Hemoglobin 13.1 g/dL (12.0-15.0); Lymphocyte # 1.54 X10^3/ul (4.0); Lymphocyte % 20.1 % (19-41); Mean Corp Hgb Conc 32.2 g/dL (32-36); Mean Corpuscular Hgb 27.9 pg (27.0-32.0); Mean Corpuscular Volume 86.6 fL (81-99); Mean Platelet Vol. 10.7 fl (6.2-12.0); Monocyte# 0.61 X10^3/uL; NRBC Flagged by Analyzer 0 % (0-5); Neutrophil # 5.26 X10^3/uL (2.7-7.7); Neutrophil % 68.5 % (47-70); Platelet Count 235 K/mm3 (150-450); RBC Distribution Width CV 12.5 % (11.6-14.6); RBC Distribution Width SD 39.7 fl (35.1-43.9); White Blood Count 7.7 K/mm3 (4.4-11.0)
[2019-10-07 21:14] VITALS: BP 143/71; PULSE 68; RESP 17; O2SAT 95
[2019-10-07 21:36] LABS: Anion Gap 5 (5-15); BUN 11 mg/dL (7-18); BUN/Creat Ratio 17.3 RATIO (10-20); Calcium,Total 9.1 mg/dL (8.5-10.1); Chloride 104 mmol/L (98-107); Creatinine, Serum 0.64 mg/dL (0.55-1.02); EST Glomerular Filtration Rate 106 mL/min (>60); Est Glom Filt Rate - Afr Amer 128 mL/min (>60); Estimated Creatinine Clearance 80.24 ml/min; Glucose 123 mg/dL (74-106); Potassium 3.8 mmol/L (3.5-5.1); Sodium Level 138 mmol/L (136-145)
[2019-10-07 21:52] VITALS: BP 144/75; PULSE 68; RESP 13; O2SAT 98
== END 2019-10-07 21:52 | disposition home or self-care (01) ==
PROVIDERS: Emergency Provider Emergency Medicine; PCP Family Medicine
DX: R07.9 Chest pain, unspecified (principal); E66.9 Obesity, unspecified; Z87.891 Personal history of nicotine dependence
CPT/HCPCS: 71045; 80048; 84484; 85025; 93005; 99285; A4216

== ENCOUNTER → 2019-11-03 | Outpatient (CLI) | payer SELFPAY ==
[2019-10-07 19:49] VITALS: BMI 49.1
[2019-11-03 15:47] LABS: Vitamin D,25 Hydroxy 21.8 ng/mL
[2019-11-03 15:49] LABS: Hemoglobin A1c 5.3 % (3.8-5.6)
[2019-11-03 16:00] LABS: Thyroid Stim Hormone (TSH) 2.34 uIU/mL (0.358-3.74)
== END | disposition home or self-care (01) ==
LOC: BFHLAB 12:02
PROVIDERS: PCP Family Medicine; Visit Provider Family Medicine
DX: E55.9 Vitamin D deficiency, unspecified (principal); R73.01 Impaired fasting glucose; R53.83 Other fatigue
CPT/HCPCS: 36415; 82306; 83036; 84443

== ENCOUNTER → 2020-04-23 10:24 | Outpatient (CLI) | payer SELFPAY ==
[2020-01-25 14:48] VITALS: BMI 52.0
[2020-04-23 12:34] LABS: AST(SGOT) 61 U/L (15-37); Alanine Aminotransfer ALT/SGPT 99 U/L (13-56); Albumin, Serum 3.7 g/dL (3.2-5.0); Alkaline Phosphatase 109 U/L (45-117); Bilirubin, Direct 0.14 mg/dL (0.00-0.30); Globulin 3.6 g/dL (2.2-4.2); Protein, Total 7.3 g/dL (6.4-8.2)
== END ==
PROVIDERS: PCP Family Medicine; Visit Provider Family Medicine
DX: K75.81 Nonalcoholic steatohepatitis (NASH) (principal)
CPT/HCPCS: 36415; 80076

== ENCOUNTER → 2020-06-07 09:50 | Outpatient (CLI) | payer SELFPAY ==
[2020-01-25 14:48] VITALS: BMI 52.0
--- NOTE | 2020-06-07 09:53 | RAD_ITS ---
STUDY: X-RAY - LUMBAR SPINE REASON FOR EXAM: Female, 49 years old. LBP TECHNIQUE: 5 view(s) of the lumbar spine were obtained. COMPARISON: 02/19/2018 FINDINGS: Normal lumbar lordosis. There is no substantial scoliosis. There is a normal alignment of the vertebrae. Normal vertebral bodies and endplates. Normal disc space heights. The soft tissue structures are unremarkable. RAD/L/S Spine Min 4 Views IMPRESSION: Normal x-ray examination of the lumbar spine. Electronically Signed: Ric Figueroa MD at 9:38 EDT Tel , Service support ,
== END ==
PROVIDERS: PCP Family Medicine; Referring Provider Family Medicine; Visit Provider Family Medicine
DX: M54.16 Radiculopathy, lumbar region (principal)
CPT/HCPCS: 72110

== ENCOUNTER → 2020-07-13 06:29 | Outpatient (CLI) | payer SELFPAY ==
[2020-01-25 14:48] VITALS: BMI 52.0
--- NOTE | 2020-07-13 06:44 | MRI_ITS ---
STUDY: MRI LUMBAR SPINE WITHOUT CONTRAST REASON FOR EXAM: Female, 49 years old. DDD TECHNIQUE: Standardized fat and water weighted pulse sequences were obtained in the sagittal and axial planes. COMPARISON: MRI lumbar spine without contrast 03/04/2018. FINDINGS: T11-T12: (Sagittal only). Mild anterior wedging of the T11 superior endplate is unchanged. Normal T11 inferior endplate. Normal T12 superior endplate. Normal disc height, hydration and morphology. No ventral extradural defect. Normal central canal and bilateral intervertebral neural foramina. Round focal red to yellow marrow changes in the posterior central T11 vertebral body. T12-L1: (Sagittal only). Normal endplates. Normal disc height, hydration and morphology. No ventral extra dural defect. Normal central canal and bilateral intervertebral neural foramina. Small round posterior L1 benign vertebral body hemangioma. Normal lumbar lordosis. There is no substantial scoliosis. Normal conus medullaris that terminates at the mid T12 vertebral body level. L1-2: Normal endplates. Normal disc height, hydration and morphology. Normal bilateral facet joints. Normal central canal and bilateral lateral recesses. Normal bilateral intervertebral neural foramina. L2-3: Normal endplates. Normal disc height, hydration and morphology. Normal bilateral facet joints. Normal central canal and bilateral lateral recesses. Normal bilateral intervertebral neural foramina. Round L3 central benign vertebral body hemangioma. L3-4: Normal endplates. Normal disc height, hydration and morphology. Normal bilateral facet joints. Normal central canal and bilateral lateral recesses. Normal bilateral intervertebral neural foramina. L4-5: Normal endplates. Normal disc height and morphology. Minimal degenerative retrolisthesis of L4 on L5 is unchanged. Mild central canal stenosis with an AP canal diameter of 10 mm is unchanged. Normal bilateral lateral recesses. Mild asymmetric degenerative facet arthropathy. Normal bilateral intervertebral neural foramina. L5-S1: Normal endplates. Normal disc height, hydration and morphology. Normal bilateral facet joints. Normal central canal and bilateral lateral recesses. Normal bilateral intervertebral neural foramina. Normal visualized sacral ala. Normal visualized paraspinous soft tissue structures. MRI/Spine Lumbar (Routine) IMPRESSION: 1. No MRI evidence of lumbar extruded disc fragment or spinal stenosis. 2. Minimal degenerative retrolisthesis of L4 on L5 and mild central canal stenosis are unchanged. 3. Old anterior wedging of the T11 superior endplate is unchanged. 4. No interval changes or new findings when compared to 03/04/2018. Electronically Signed: Robert Leblanc MD at 11:00 EDT , Service support ,
== END ==
PROVIDERS: PCP Family Medicine; Referring Provider Orthopaedic Surgery; Visit Provider Orthopaedic Surgery
DX: M51.37 Other intervertebral disc degeneration, lumbosacral region (principal)
CPT/HCPCS: 72148

== ENCOUNTER → 2020-08-13 07:28 | Outpatient (CLI) | payer SELFPAY ==
[2020-01-25 14:48] VITALS: BMI 52.0
--- NOTE | 2020-08-13 07:36 | US_ITS ---
STUDY: THYROID ULTRASOUND REASON FOR EXAM: Female, 50 years old. THYROMEGALY ON EXAM,RIGHT CERVICAL LYMPHADENOPATHY TECHNIQUE: Ultrasound evaluation of the thyroid was performed with real-time and static adams-scale imaging. COMPARISON: None. FINDINGS: Scanning of the left side of the neck revealed. 1.5 x 0.6 x 0.4 cm lymph node with fatty hilum seen lateral to the left lobe of the thyroid. No enlarged lymph nodes seen on the right side. US/Head/Neck Soft Tissue IMPRESSION: Benign-looking lymph nodes in the left lung limits as mentioned Electronically Signed: Sunita Vick, at 11:41 EDT Tel , Service support ,
== END ==
PROVIDERS: PCP Family Medicine; Referring Provider Family Medicine; Visit Provider Family Medicine
DX: E04.9 Nontoxic goiter, unspecified (principal)
CPT/HCPCS: 76536

== ENCOUNTER → 2020-08-30 07:18 | Outpatient (CLI) | payer SELFPAY ==
[2020-01-25 14:48] VITALS: BMI 52.0
--- NOTE | 2020-08-30 07:27 | BI_ITS ---
MAMMOGRAPHY - BILATERAL SCREENING REASON FOR EXAM: Female, 50 years old. Routine annual screening examination. PERTINENT HISTORY: Non-contributory. TECHNIQUE: Digital bilateral breast cirilo (3D mammographic acquisition) in the CC and MLO projections. 2-D mediolateral oblique (MLO) and craniocaudad (CC) views of both breasts were obtained. CAD: Full Field Digital Mammography with Computer Added Detection was performed. COMPARISON: Comparison is made with prior examination dated 08/25/2019 and 11/05/2018. FINDINGS: Breast Composition: The breasts are heterogeneously dense, which may obscure small masses. There are no dominant masses or suspicious calcifications. Stable small benign appearing bilateral axillary nodes. No other significant abnormalities are identified. There has been no significant change since the prior study. BI/SCRN MAMM (CAD)W/CIRILO BILAT IMPRESSION: Stable bilateral screening mammogram. Yearly follow-up mammogram recommended. (A) ASSESSMENT CATEGORY: BIRADS Category 2: Benign. A letter regarding these results will be sent to the patient by the facility within 30 days. Approximately 10% of breast cancers are not detected by mammography. A normal mammogram should not delay biopsy of a clinically suspicious abnormality. [id number] Electronically Signed: Quintin Bray MD at 8:29 EDT , Service support ,
== END ==
PROVIDERS: PCP Family Medicine; Referring Provider Obstetrics & Gynecology; Visit Provider Obstetrics & Gynecology
DX: Z12.31 Encounter for screening mammogram for malignant neoplasm of breast (principal)
CPT/HCPCS: 77063; 77067

== ENCOUNTER → 2020-10-15 07:59 | Outpatient (CLI) | payer SELFPAY ==
[2020-10-16 16:18] LABS: Giardia Lamblia, Stool EIA Negative (Negative)
== END ==
PROVIDERS: PCP Family Medicine; Referring Provider Family Medicine; Visit Provider Family Medicine
DX: K75.81 Nonalcoholic steatohepatitis (NASH) (principal); E55.9 Vitamin D deficiency, unspecified; R53.83 Other fatigue; R19.7 Diarrhea, unspecified; R11.0 Nausea
CPT/HCPCS: 87329; 87493; 87506

== ENCOUNTER → 2020-11-20 | Outpatient (CLI) | payer SELFPAY | END | disposition home or self-care (01) | LOC: LABSPEC 17:07 | PROVIDERS: PCP Family Medicine; Referring Provider Obstetrics & Gynecology; Visit Provider Obstetrics & Gynecology | DX: N39.46 Mixed incontinence (principal) | CPT/HCPCS: 87086; 87088 ==

== ENCOUNTER 2021-09-12 09:18 | Day surgery (SDC) | payer SELFPAY ==
[2021-09-12] VITALS (7 sets, daily range): BP systolic 109–149; BP diastolic 65–75; PULSE 55–64; RESP 16–18; TEMP 36.3–36.7; O2SAT 98–100; BMI 50.8
[2021-09-12] MEDS: Lactated Ringers 1,000 ML 30 ML IV (10:01)
--- NOTE | 2021-09-12 10:15 | COLBX_PTH ---
PATIENT: AMINATA GLEASON LOC: EN U#:[id number] AGE/SX: 51/F ROOM: RE09/12/[address]: Dr. Wade Macario DO : 1970 BED: DIS: 09/12/2021 SPEC #: [id number] RECD: 09/12/21 14:12 STATUS: BRIANNA REYandy #: [id number] GENEVA: 09/12/21 10:[address]: Wade Macario DEPT: SURGICAL PATHOLOGY RECD BY: Alisha Benton ENTERED: 09/13/21 08:06 SP TYPE: COLON BX OT DR: Dr. Bala Oliveira MD Tissues: A - Cecum, NOS B - COLON BIOPSY C - Sigmoid colon biopsy Procedures: Surgery Specimen Level IV HEADER OPERATION: Colonoscopy (MAC) PRE-OP DIAGNOSIS: Screening TISSUE SUBMITTED: A ? Ileocecal valve biopsy, B ? Random colon biopsy, C ? Submucosal lesion, sigmoid biopsy MICROSCOPIC DIAGNOSIS A. Ileocecal valve, biopsy: Fragments of small intestinal and colonic mucosa with focal acute inflammation. See comment. B. Colon, random biopsy: Fragments of colonic mucosa, no pathologic diagnosis. C. Sigmoid colon, submucosal lesion, biopsy: A fragment of colonic mucosa, no pathologic diagnosis. SJ:rg 09/16/2021 COMMENT A. Minimal granular distortion is noted. Correlation with clinical, endoscopic findings and appropriate follow up are necessary. MICROSCOPIC DESCRIPTION Slides are reviewed. GROSS DESCRIPTION A - Received in fixative is one container labeled with the patient's name and designated ileocecal valve biopsy. The specimen consists of multiple irregular fragments of light yeager soft tissue that in aggregate measure 0.8 x 0.2 x 0.1 cm. The specimen is totally submitted in one cassette. B - Received in fixative is one container labeled with the patient's name and designated random colon biopsy. The specimen consists of multiple irregular fragments of light yeagre soft tissue that in aggregate measure 1.5 x 1 x 0.1 cm. The specimen is totally submitted in one cassette. C - Received in fixative is one container labeled with the patient's name and designated submucosal lesion, sigmoid. The specimen consists of one irregular fragment of light yeager soft tissue that measures 0.5 x 0.5 x 0.1 cm. The specimen is totally submitted in one cassette. / TIMOTEO:leonel 09/13/2021 TC:2 CPT: 30917 x3
--- NOTE | 2021-09-12 10:17 | PCM.HP.STD ---
HPI - General General Chief Complaint: Screening colonoscopy HPI Narrative AMINATA GLEASON, is a 51 F who presents for screening colonoscopy. She has a past medical history of acute bronchitis acute sinusitis and mild urinary incontinence. She also has a past medical history of asthma. She is not having any chest pain or shortness of breath. She does not have any nausea vomiting, chest pain or shortness of breath. Overall she is in pretty good health. All other 16 review of systems are negative except as per body mentioned HPI. [facility]LY [facility] Medical History (Updated 09/10/21 @ 09:53 by Mary Ivy) Anemia Asthma Back pain Blackout Carpal tunnel syndrome Depression Diabetes Fatty liver Gastric reflux History of depression History of echocardiogram History of edema Leaky heart valve Leg cramps Migraine headache Non-smoker Shortness of breath on exertion Home Medications albuterol sulfate 90 mcg/actuation aerosol inhaler 2 puff inhalation Q6H PRN SOB 11/20/20 [History Last Taken Unknown] cetirizine 10 mg capsule (Zyrtec) 10 mg PO DAILY PRN ALLERGIES 11/20/20 [History Last Taken Unknown] cholecalciferol (vitamin D3) 50 mcg (2,000 unit) capsule 50 mcg PO DAILY 11/20/20 [History Last Taken Unknown] lactobacillus combination no.4 3 billion cell capsule (Probiotic) 3,000 mmu cells PO DAILY 09/10/21 [History Last Taken Unknown] Allergy/AdvReac Type Severity Reaction Status Date / Time No Known Allergies Allergy Verified 09/12/21 09:36 Family History Mother Heart disease Diabetes Father Cancer leukemia Surgical History (Updated 09/10/21 @ 09:53 by Mary Ivy) History of tooth extraction Hx laparoscopic cholecystectomy Hx of abdominal hysterectomy Social History Smoking Status: Never smoker alcohol intake: never substance use type: does not use caffeine: Yes what type of physical activity do you participate in: walking seatbelt use: always do you feel safe at home: Yes 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 ROS Review of Systems ROS Unobtainable: other Constitutional Constitutional: Denies fatigue, fever(s), poor appetite, weight gain or weight loss ENT HEENT: Denies mouth lesions Cardiovascular Cardiovascular: Denies abdominal bloating, abdominal edema or abdominal pain Respiratory/Chest Respiratory/Chest: Denies change in mental status, change in phlegm color, chest congestion or chest tightness Gastrointestinal Gastrointestinal: Denies belching, bloating, change in bowel habits, change in stool character, chewing difficulty, coffee ground emesis, constipation, cramping, diarrhea, dyspepsia, dysphagia, early satiety, excessive flatus, fecal incontinence, heartburn, hematemesis, hematochezia, hemorrhoids, loose stools, melena, nausea, odynophagia, rectal bleeding, tenesmus, vomiting or weight changes Genitourinary Genitourinary: Denies abdominal discomfort, burning urination or itching Musculoskeletal Musculoskeletal: Reports as per HPI; Denies muscle weakness or myalgias Integumentary Integumentary: Denies jaundice Neurologic Neurologic: Denies lack of coordination or weakness Psychiatric Psychiatric: Denies confusion, depression, memory loss, mood swings, paranoia or suicidal ideation Endocrine Endocrinology: Denies systems reviewed and no addt'l complaints, except as documented Hematologic/Lymphatic Hematologic/Lymphatic: Denies anemia, easy bleeding, easy bruising or lymphadenopathy Allergic/Immunologic Allergic/Immunologic: Denies systems reviewed and no addt'l complaints, except as documented Vital Signs Vital Signs Vital Signs: 09/12/21 09:39 09/12/21 09:39 Temperature 98.1 F Temperature Source Temporal Pulse Rate 64 Respiratory Rate 16 Respiratory Pattern Normal Blood Pressure 149/75 H Blood Pressure Mean 99 Blood Pressure Source Monitor Blood Pressure Position Sitting Blood Pressure Location Left Arm Pulse Ox 100 Oxygen Delivery Method Room Air Weight Weight: 268 lb 15.423 oz Body Mass Index (BMI) 50.8 Physical Exam Const alert General Appearance: cooperative Orientation / Consciousness: oriented to person HEENT hearing grossly normal bilaterally Head and Scalp: normal to inspection Face and Sinus: face symmetric Nose: external nose normal Mouth: oral and palatal mucosa normal Eyes conjunctivae normal General Eye: normal appearance of both eyes Neck full ROM General: normal visual inspection Lymph Lymphatic: no lymphadenopathy noted Chest inspection of chest normal and palpation of chest normal Chest: symmetrical chest wall rise Resp normal respiratory effort Effort and Inspection: able to speak in complete sentences Cardio regular rate GI non-distended Percussion: normal to percussion Rectal Exam: deferred Neuro Speech: speech normal Gait (Neuro): normal gait Assessment & Plan Assessment/Plan (1) Encounter for screening for malignant neoplasm of colon: PLAN: She will undergo screening colonoscopy. She was explained alternatives, risk, benefits including not withstanding bleeding, infection, sepsis, perforation, need for emergent or . She will have an ASA of 1.
--- NOTE | 2021-09-12 11:02 | OP.CCLET_ITS ---
11/27/2021 Bala Oliveira Re : Colonoscopy procedure for Diandra Barber Dear Roxanne This procedure was performed on August. My impressions and recommendations are as follows: Impressions : - Localized mild inflammation was found at the ileocecal valve secondary to colitis. Biopsied. - Congested mucosa in the sigmoid colon, in the transverse colon and in the cecum. Biopsied. Recommendations : - Discharge patient to home. - Resume previous diet. - Continue present medications. - Await pathology results. - Repeat colonoscopy in 5 years for surveillance. - Return to GI office. My findings are described in the full procedure note, which is enclosed. If I can be of further assistance, please feel free to contact me at . Sincerely, Wade Macario, 09/12/2021 11:01:53 AM This report has been signed electronically.
--- NOTE | 2021-09-12 11:02 | OP.COLON_ITS ---
Patient Name: Diandra Barber Procedure Date: 09/12/2021 10:21 AM Date of : 1970 Age: 51 Procedure: Colonoscopy Indications: This is the patient's first colonoscopy Providers: Wade Macario DO Medicines: Monitored Anesthesia Care Patient Profile: This is a 51 year old female. Refer to note in patient chart for documentation of history and physical. Last Colonoscopy: date unknown. Unable to locate last colonoscopy report. Complications: No immediate complications. Procedure: Pre-Anesthesia Assessment: - Prior to the procedure, a History and Physical was performed, and patient medications and allergies were reviewed. The risks and benefits of the procedure and the sedation options and risks were discussed with the patient. All questions were answered and informed consent was obtained. Patient identification and proposed procedure were verified by the physician in the pre-procedure area. Mental Status Examination: alert and oriented. Airway Examination: normal oropharyngeal airway and neck mobility. Respiratory Examination: clear to auscultation. CV Examination: normal. Prophylactic Antibiotics: The patient does not require prophylactic antibiotics. Prior Anticoagulants: The patient has taken no previous anticoagulant or antiplatelet agents. ASA Grade Assessment: II - A patient with mild systemic disease. After reviewing the risks and benefits, the patient was deemed in satisfactory condition to undergo the procedure. The anesthesia plan was to use moderate sedation / analgesia (conscious sedation). Immediately prior to administration of medications, the patient was re-assessed for adequacy to receive sedatives. The heart rate, respiratory rate, oxygen saturations, blood pressure, adequacy of pulmonary ventilation, and response to care were monitored throughout the procedure. The physical status of the patient was re-assessed after the procedure. After I obtained informed consent, the scope was passed under direct vision. Throughout the procedure, the patient's blood pressure, pulse, and oxygen saturations were monitored continuously. The pediatric colonoscope was introduced through the anus and advanced to the cecum, identified by appendiceal orifice and ileocecal valve. The terminal ileum, ileocecal valve, appendiceal orifice, and rectum were photographed. Scope In: 10:33:56 AM Scope Withdrawal Time 0 hours 10 minutes 58 seconds Scope Out: 10:47:43 AM Total Procedure Duration Time 0 hours 13 minutes 47 seconds Findings: The perianal and digital rectal examinations were normal. Localized mild inflammation characterized by congestion (edema) and erythema was found at the ileocecal valve. Biopsies were taken with a cold forceps for histology. Verification of patient identification for the specimen was done. Estimated blood loss was minimal. An area of mildly congested mucosa was found in the sigmoid colon, in the transverse colon and in the cecum. Biopsies were taken with a cold forceps for histology. Verification of patient identification for the specimen was done. Estimated blood loss was minimal. Impression: - Localized mild inflammation was found at the ileocecal valve secondary to colitis. Biopsied. - Congested mucosa in the sigmoid colon, in the transverse colon and in the cecum. Biopsied. Recommendation: - Discharge patient to home. - Resume previous diet. - Continue present medications. - Await pathology results. - Repeat colonoscopy in 5 years for surveillance. - Return to GI office. Procedure Code(s): --- Professional --- 18458, Colonoscopy, flexible; with biopsy, single or multiple CPT copyright 2017 [employer]. All rights reserved. The codes documented in this report are preliminary and upon building energy consultant review may be revised to meet current compliance requirements. Wade Macario DO 09/12/2021 11:01:53 AM This report has been signed electronically. Number of Addenda: 1 Note Initiated On: 09/12/2021 10:21 AM Addendum Number: 1 Addendum Date: 11/27/2021 6:13:01 AM MAC was used as sedation for this procedure. Wade Macario DO 11/27/2021 6:13:05 AM This report has been signed electronically.
== END 2021-09-12 11:43 | disposition home or self-care (01) ==
LOC: EN 09:19 → AC 09:22
PROVIDERS: PCP Family Medicine; Referring Provider Family Medicine; Visit Provider Internal Medicine Gastroenterology
PROC: 0DJD8ZZ Inspection of Lower Intestinal Tract, Via Natural or Artificial Opening Endoscopic (ICD-10-PCS; CPT 45378; principal; 2021-09-12 10:10)
DX: Z12.11 Encounter for screening for malignant neoplasm of colon (principal); E11.9 Type 2 diabetes mellitus without complications; K52.9 Noninfective gastroenteritis and colitis, unspecified; K63.89 Other specified diseases of intestine; J45.909 Unspecified asthma, uncomplicated; N39.46 Mixed incontinence; K21.9 Gastro-esophageal reflux disease without esophagitis; Z79.899 Other long term (current) drug therapy
CPT/HCPCS: 88305; J7120; J2405

== ENCOUNTER → 2021-09-24 | Outpatient (CLI) | payer SELFPAY ==
--- NOTE | 2021-09-24 08:05 | BI_ITS ---
MAMMOGRAPHY - BILATERAL SCREENING 3-D TOMOSYNTHESIS REASON FOR EXAM: Female, 51 years old. Annual screening mammogram. PERTINENT HISTORY: No significant family history. TECHNIQUE: 2-D mammograms and 3-D Tomosynthesis of the breast (s) were performed. CAD was performed. COMPARISON: 08/30/2020, 08/25/2019 11/05/2018. FINDINGS: The breast composition is heterogeneously dense that can obscure small breast masses. No dense spiculated masses or suspicious microcalcifications are identified. No architectural distortion is identified. There is no skin thickening or retraction. BI/SCRN MAMM (CAD)W/CIRILO BILAT IMPRESSION: No interval change and no mammographic signs of malignancy. Routine yearly mammograms recommended. ASSESSMENT CATEGORY: BIRADS Category 1: Negative. A letter regarding these results will be sent to the patient by the facility within 30 days. FOLLOW UP RECOMMENDATION: Yearly follow up mammogram recommended. (A) Approximately 10% of breast cancers are not detected by mammography. A normal mammogram should not delay biopsy of a clinically suspicious abnormality. Electronically Signed: Naun Tobar MD at 10:36 EDT ,
== END | disposition home or self-care (01) ==
LOC: OPBI 08:03
PROVIDERS: PCP Family Medicine; Visit Provider Obstetrics & Gynecology
DX: Z12.31 Encounter for screening mammogram for malignant neoplasm of breast (principal)
CPT/HCPCS: 77063; 77067

== ENCOUNTER → 2022-06-17 | Outpatient (CLI) | payer SELFPAY ==
[2022-06-17 13:01] LABS: Absolute Lymphocyte Count 0.93 X10^3/uL (0.83-4.51); Absolute Neutrophil Count 4.3 X10^3/uL (2.0-7.7); Basophil# 0.02 X10^3/uL; Basophil% 0.3 % (0-1); Eosinophil# 0.22 X10^3/uL; Eosinophils% 3.8 % (0-5); Hematocrit 41.1 % (37-47); Hemoglobin 12.6 g/dL (12.0-15.0); Lymphocyte # 0.93 X10^3/ul (0.83-4.51); Lymphocyte % 15.9 % (19-41); Mean Corp Hgb Conc 30.7 g/dL (32-36); Mean Corpuscular Hgb 27.1 pg (27.0-32.0); Mean Corpuscular Volume 88.4 fL (81-99); Mean Platelet Vol. 10.5 fl (6.2-12.0); Monocyte# 0.34 X10^3/uL; Monocyte% 5.8 % (0-10); NRBC Flagged by Analyzer 0 % (0-5); Neutrophil # 4.32 X10^3/uL (2.7-7.7); Neutrophil % 73.9 % (47-70); Platelet Count 239 K/mm3 (150-450); RBC Distribution Width CV 13.4 % (11.6-14.6); RBC Distribution Width SD 43.5 fl (35.1-43.9); Red Blood Count 4.65 M/mm3 (4.2-5.4); White Blood Count 5.9 K/mm3 (4.4-11.0)
[2022-06-17 13:35] LABS: Vitamin B12 1478 pg/mL (211-911); Vitamin D,25 Hydroxy 38.6 ng/mL
[2022-06-17 13:54] LABS: ALB/GLOB Ratio 0.8 RATIO (0.9-2.4); AST(SGOT) 18 U/L (15-37); Alanine Aminotransfer ALT/SGPT 36 U/L (13-56); Albumin, Serum 3.4 g/dL (3.2-5.0); Alkaline Phosphatase 90 U/L (45-117); Anion Gap 4 (5-15); BUN 10 mg/dL (7-18); BUN/Creat Ratio 14.2 RATIO (10-20); Calcium,Total 8.8 mg/dL (8.5-10.1); Chloride 105 mmol/L (98-107); Cholesterol 151 mg/dL (200); EST Glomerular Filtration Rate 93 mL/min (>60); Est Glom Filt Rate - Afr Amer 112 mL/min (>60); Globulin 4.2 g/dL (2.2-4.2); Glucose 110 mg/dL (74-106); High Density Lipoprotein 45 mg/dL; Potassium 4.6 mmol/L (3.5-5.1); Protein, Total 7.6 g/dL (6.4-8.2); Sodium Level 137 mmol/L (136-145); Thyroid Stim Hormone (TSH) 1.74 uIU/mL (0.358-3.74); Triglycerides 101 mg/dL; Very Low Density Lipoprotein 20 mg/dL (5-40)
== END | disposition home or self-care (01) ==
LOC: BFHLAB 08:07
PROVIDERS: PCP Nurse Practitioner Family; Referring Provider Nurse Practitioner Family; Visit Provider Nurse Practitioner Family
DX: Z00.01 Encounter for general adult medical examination with abnormal findings (principal); Z13.21 Encounter for screening for nutritional disorder
CPT/HCPCS: 36415; 80053; 80061; 82306; 82607; 84443; 85025

== ENCOUNTER → 2022-07-25 | Outpatient (CLI) | payer SELFPAY ==
--- NOTE | 2022-07-25 08:59 | BI_ITS ---
MAMMOGRAPHY - BILATERAL DIAGNOSTIC REASON FOR EXAM: Female, 51 years old. Asymmetrical enlargement of the right breast. PERTINENT HISTORY: Non-contributory. TECHNIQUE: Digital bilateral breast delon (3D mammographic acquisition) in the CC and MLO projections. 2-D mediolateral oblique (MLO) and craniocaudad (CC) views of both breasts were obtained. CAD: Full Field Digital Mammography with Computer Added Detection was performed. COMPARISON: Comparison is made with prior study dated September 24, 2021 and August 30, 2020. FINDINGS: Breast Composition: The breasts are heterogeneously dense, which may obscure small masses. There are no dominant masses or suspicious calcifications. No other significant abnormalities are identified. There has been no significant change since the prior study. BI/DIAG MAMM W/CAD, BILAT IMPRESSION: Stable bilateral diagnostic mammogram. With the patient''s history of enlargement of the right breast, correlation with ultrasound is recommended. ASSESSMENT CATEGORY: BIRADS Category 0: Incomplete. Need additional imaging evaluation. A letter regarding these results will be sent to the patient by the facility within 30 days. Approximately 10% of breast cancers are not detected by mammography. A normal mammogram should not delay biopsy of a clinically suspicious abnormality. Electronically Signed: Quintin Bray MD at 10:28 EDT ,
--- NOTE | 2022-07-25 08:59 | US_ITS ---
STUDY: ULTRASOUND BREAST - RIGHT REASON FOR EXAM: Female, 51 years old. Enlargement of the right breast. TECHNIQUE: Axial and longitudinal images of the RIGHT breast were performed with a high resolution ultrasound transducer. # OF IMAGES: 32 COMPARISON: Comparison is made with prior mammogram dated July 25, 2022. FINDINGS: RIGHT Breast: The upper outer quadrant of the right breast was examined with ultrasound. There is evidence of heterogeneous fibroglandular tissue. Dilated ducts are seen at that site. US/Breast Limited Unilateral IMPRESSION: Dilated ducts seen at the 11:00 position of the breast at 9 cm from the nipple. ASSESSMENT CATEGORY: BIRADS Category 2: Benign. A letter regarding these results will be sent to the patient by the facility within 30 days. Electronically Signed: Quintin Bray MD at 8:35 EDT ,
== END | disposition home or self-care (01) ==
PROVIDERS: PCP Nurse Practitioner Family; Referring Provider Obstetrics & Gynecology; Visit Provider Obstetrics & Gynecology
DX: N63.10 Unspecified lump in the right breast, unspecified quadrant (principal)
CPT/HCPCS: 76642; 77062; 77066; G0279

== ENCOUNTER 2022-08-29 07:00 | Outpatient (RCR) | payer SELFPAY ==
--- NOTE | 2022-06-09 13:16 | HP.PTEVAL_ITS ---
Patient's Visit Information AMINATA GLEASON is a 51 year old F referred to Physical Therapy by Dr. Mily Cotton MD with a diagnosis of STRESS INCONTINENCE AND OVER-ACTIVE BLADDER. Date of Evaluation: 06/09/22 Physical Therapist: Sanjuanita Ball PT, Cert MDT - Visit Plan Frequency: 1x/Week Duration: 8-12 WKS Plan: PELVIC FLOOR STRENGTHENING. URINARY RETENTION, URGE AND FREQUENCY EDUCATION. HEALTHY BLADDER HABIT EDUCATION. TRAINING IN COORDINATION OF PELVIC FLOOR MUSCULATURE WITH HIP AND CORE (TRANSVERSE ABDOMINUS) MUSCULATURE. POSTURE CORRECTION/STRENGTHENING. CORE STRENGTHENING. MAURA LE ROM, STRETCHING AND STRENGTHENING. TRAINING IN ABDOMINAL CAVITY PRESSURE MGMT WITH ADL'S. 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 Disability: NO. Present symptoms: FREQUENT URINATION. NOT ABLE TO HOLD IT. SOME LEAKING OF URINE TOO. PATIENT DENIES PAIN ASSOCIATED WITH URINARY INCONTINENCE. Present since: ABOUT 18 MONTHS AGO. Pain Scale: N/A. Is it getting better, worse or staying the same: GETTING BETTER WITH NEW MEDICATION GEMTESA PRESCRIBED BY DR. COTTON. Commenced as a result of: NO APPARENT REASON. Worse: lemonade, soda pop, when ill, when nervous. Better: Gemtesa. Disturbed sleep: GETTING UP TO URINATE AT NIGHT ONE OR LESS TIMES PER NIGHT. Previous history/Previous treatment: UNREMARKABLE. Treatment this episode: GEMTESA. Coughing/sneezing/straining: Occasional Leaking of urine. Gait: NORMAL. How long can you delay the need to urinate: A MINUTE OR LESS PRIOR TO TAKING GEMTESA. NOW CAN DELAY 2-3 MINUTES (IT IS NOT URGENT WHAT IT WAS BEFORE THE MEDICAITON). Prolapse (Falling out fe eling): NO. Frequency of Urination: BEFORE GEMTESA ABOUT EVERY 60 TO 90 MINUTES NOW CAN WAIT 2 TO 2.5 HRS. Ability to stop urine flow: USUALLY NO. Ability to initiate urine stream: NO. Dyspareunia: NO. Bowel Incontinence: RARE FECAL SMEARING BASED ON CERTAIN FOODS SINCE GALBLADDER REMOVED. Accidents: NO. Unexplained weight loss: NO. Imaging: X-RAYS AND MRI OF LOW BACK ABOUT A YEAR OR TWO AGO SHOWING DDD AND ARTHRITIS PER PATIENT REPORT. PMH/Recent major surgery: ANEMIA, ASTHMA, DEPRESSION, FATTY LIVER, GASTRIC REFLUX, EDEMA, LEAKY HEART VALVE, COAGULANT DISORDER. TOOTH EXTRACTION, ABDOMINAL HYSTERECTOMY, GALLBLADDER REMOVAL AND R CARPAL TUNNEL SX. OTHER: PATIENT REPORTS SHE WAS EXERCISING UNTIL SHE GOT SICK IN MAR 2022 AND AGAIN IN APRIL 2022. SHE REPORTS SHE WALKS ON A TREADCLIMBER AND WALKING VIDEO'S. - Objective Sitting/Standing Posture: POOR. FH. RSH'S. NORMAL TO INCREASED LORDOSIS. Other Observations: INDEP GAIT AND TRANSFERS. Sensory deficit: MAURA LE LIGHT TOUCH SENSATION GROSSLY INTACT AND SYMMETRICAL. ROM deficit: MAURA LE HIP ADD TIGHTNESS AND PIRIFORMIS TIGHTNESS. Motor deficit: MAURA LE 'S GROSSLY 5/5 WITH MMT'ING EXCEPT HIPS 4/5. Reflexes: UNABLE TO ELICIT MAURA LE DTR'S. Dural Signs: NEGATIVE MAURA LE'S. Lumbar mvmt loss: flex - NIL. ext - NIL. R SG - MIN. L SG - MIN. MILD TEMPORARY INCREASED LBP WITH LUMBAR MAURA SG TESTING. Core strength: POOR. Palpation: NO INTERNAL PELVIC FLOOR EXAM TODAY. DISCUSSED POSSIBLE BENEFITS OF MANUAL INTERNAL PELVIC FLOOR TESTING AND BIOFEEDBACK FOR STRENGTHENING AND PATIENT WILL CONSIDER IF NEEDED. PATIENT COMMUNICATES A FAIR UNDERSTANDING OF HOW TO CONTRACT PELVIC FLOOR AND COMMUNICATES ABILITY TO CONTRACT PF X APPROX 2 SEC AT A TIME. COMMUNICATED A GOOD UNDERSTANDING OF HOW TO DO QUICK FLICK KEGELS GIVEN BELOW. FUNCTIONAL SCREEN: Incontinence Impact Questionnaire Score: 15. Urogenital Distress Inventory Score: 8. TREATMENT: THER ACT - INITIATED HEP WITH DIAPHRAGMATIC BREATHING X 5 MINUTES A DAY AND QUICK FLICK KEGELS X 8, 3 TIMES A DAY. ALSO INSTRUCTED PATEINT IN USE OF DIAPHRAGMATIC BREATHING TO DECREASE URINARY URGE. PATIENT DEMONSTRATED/COMMUNICATED A GOOD UNDERSTANDING AFTER INSTRUCTIONS GIVEN. - Goals Goal 1:: DECREASE URINARY LEAKAGE EPISODES TO ONE OR LESS PER DAY Goal Time Frame: 4-6 Weeks Goal 2:: PATIENT WILL SUCCESSFULLY DELAY VOIDING FOR 15 MINUTES WHEN URGENCY OCCURS Goal Time Frame: 6-8 Weeks Goal 3:: PATIENT WILL HAVE INCREASED PELVIC FLOOR MUSCLE STRENGTH GRADE TO 5/5 Goal Time Frame: 8-12 Weeks Goal 4:: PATIENT WILL DEMONSTRATE/COMMUNICATE 10 CONSISTENT AND CONSECUTIVE 10 SECOND PELVIC FLOOR MUSCLE CONTRACTIONS TO DEMONSTRATE IMPROVED PELVIC FLOOR ENDURANCE. Goal Time Frame: 8-12 Weeks Goal 5:: DEVELOP HEALTHY FLUID INTAKE HABITS WITH FLUID INTAKE OF ? BODY WEIGHT IN OUNCES PER DAY AND 2/3 BEING WATER. NORMALIZE VOIDING FREQUENCEY TO EVERY 3- 4 HOURS. Goal Time Frame: 4-6 Weeks Goal 6:: PATIENT WILL BE INDEP WITH A HEP/HOME INSTRUCTIONS FOR CONTINUED IMPROVEMENT ONCE FORMAL PHYSICAL THERAPY CONCLUDES. Goal Time Frame: 8-12 Weeks - Anticipated Interventions Patient/Client Instruction: Educate patient on: Condition, Plan of Care, Risk Factors For the Purpose of:: To improve self management Therapeutic Exercise to Include: Strength training, Endurance training, Flexibilty training, Neuromotor development For the Purpose of:: To improve muscle performance and motor function, To increase tolerance to activity/condition/position, To improve ability of physical actions for home/community/work/leisure Manual Therapy Techniques to Include: Soft tissue mobilization, Other Comment: STM NEEDED AND BIOFEEDBACK For the Purpose of:: To improve muscle performance and motor function Thank you for the opportunity to evaluate your patient. For Medicare and Medicare HMO plans, please review the plan of care and approve it. It will need to be FAXED BACK to us at [phone] for Medicare purposes. For Medicare only, by signing this I certify the plan of care. Please let me know if there are questions or concerns regarding this plan of care. Physician Signature: Date:
--- NOTE | 2022-08-29 07:52 | HP.PTDCSUM ---
Discharge Summary D/C summary: It has been my pleasure to treat AMINATA GLEASON referred by Dr. Mily Steinberg MD, with the diagnosis of STRESS INCONTINENCE AND OVER-ACTIVE BLADDER for a total of 8 visit(s). Discharge Date: Please see the following information for a summary of their discharge status. Subjective Subjective: PATIENT REPORTS SHE CAN MANAGE HER URGE BETTER NOW. STATES SHE ISN'T NEEDING TO GO TO THE BATHROOM EVERY HOUR NOW AND SHE CAN GET THERE SUCCESSFULLY, CALMLY MORE OFTEN. STATES SHE FEELS CALMER ABOUT GOING PLACES NOW BECAUSE SHE DOESN'T HAVE TO WORRY ABOUT GOING TO THE BATHROOM MUCH. Pain PELVIC PAIN: Pain Intensity (Out of 10): 1 Overall Improvement % Improvement: 90 Objective Objective/Function: ALL GOALS MET. PATIENT IS INDEP WITH A HEP AND REPORTS 90% IMPROVEMENT IN HER UI SX'S. SHE IS AGREEABLE TO AND APPROPRIATE FOR DISCHARGE. FUNCTIONAL SCREEN (IMPROVED): Incontinence Impact Questionnaire Score: 0 (15 AT EVAL). Urogenital Distress Inventory Score: 3 (8 AT EVAL). Goals Goal 1:: DECREASE URINARY LEAKAGE EPISODES TO ONE OR LESS PER DAY Goal Progress: Goal Met Goal 2:: PATIENT WILL SUCCESSFULLY DELAY VOIDING FOR 15 MINUTES WHEN URGENCY OCCURS Goal Progress: Goal Met Goal 3:: PATIENT WILL HAVE INCREASED PELVIC FLOOR MUSCLE STRENGTH GRADE TO 5/5 Goal Progress: Goal Met Subjectively Goal 4:: PATIENT WILL DEMONSTRATE/COMMUNICATE 10 CONSISTENT AND CONSECUTIVE 10 SECOND PELVIC FLOOR MUSCLE CONTRACTIONS TO DEMONSTRATE IMPROVED PELVIC FLOOR ENDURANCE. Goal Progress: Goal Met Goal 5:: DEVELOP HEALTHY FLUID INTAKE HABITS WITH FLUID INTAKE OF ? BODY WEIGHT IN OUNCES PER DAY AND 2/3 BEING WATER. NORMALIZE VOIDING FREQUENCEY TO EVERY 3-4 HOURS. Goal Progress: Goal Met Goal 6:: PATIENT WILL BE INDEP WITH A HEP/HOME INSTRUCTIONS FOR CONTINUED IMPROVEMENT ONCE FORMAL PHYSICAL THERAPY CONCLUDES. Goal Progress: Goal Met Plan Plan: D/C D/C Information d/c sentence: If there are questions or concerns regarding this patient's physical therapy, please feel free to call me at [phone]. Thank you for the referral of this patient. Sincerely, Sanjuanita Ball, PT, Cert MDT
== END 2022-08-29 19:00 | disposition home or self-care (01) ==
LOC: PT 07:00
PROVIDERS: PCP Family Medicine; Visit Provider Urology
DX: N39.3 Stress incontinence (female) (male) (principal); N32.81 Overactive bladder
CPT/HCPCS: 97162; 97530

== ENCOUNTER → 2022-11-10 | Outpatient (CLI) | payer SELFPAY ==
[2022-11-10 18:04] LABS: Anion Gap 6 (5-15); BUN 22 mg/dL (7-18); BUN/Creat Ratio 20.8 RATIO (10-20); Calcium,Total 9.1 mg/dL (8.5-10.1); Chloride 100 mmol/L (98-107); Creatinine, Serum 1.06 mg/dL (0.55-1.02); EST Glomerular Filtration Rate 58 mL/min (>60); Est Glom Filt Rate - Afr Amer 70 mL/min (>60); Glucose 108 mg/dL (74-106); Potassium 4.1 mmol/L (3.5-5.1); Sodium Level 135 mmol/L (136-145)
== END | disposition home or self-care (01) ==
LOC: BFHLAB 14:24
PROVIDERS: PCP Family Medicine; Referring Provider Family Medicine; Visit Provider Family Medicine
DX: I10 Essential (primary) hypertension (principal)
CPT/HCPCS: 36415; 80048

== ENCOUNTER → 2023-06-01 | Outpatient (CLI) | payer SELFPAY ==
--- NOTE | 2023-06-01 09:53 | RAD_ITS ---
STUDY: X-RAY - CERVICAL SPINE REASON FOR EXAM: Female, 52 years old. Arm and hand tingling, numbness TECHNIQUE: 5 view(s) of the cervical spine were obtained. COMPARISON: None FINDINGS: Normal anterior atlantoaxial articulation. Normal odontoid process. Normal cervical lordosis. Normal vertebral bodies and endplates. Normal disc space heights. Normal visualized intervertebral neuroforamina. The soft tissue structures are unremarkable. RAD/Cerv Spine 4 or 5 Views IMPRESSION: Normal x-ray examination of the visualized cervical spine. Electronically Signed: Parmjit Pike MD at 8:13 EDT ,
--- NOTE | 2023-06-01 09:53 | RAD_ITS ---
STUDY: X-RAY - RIGHT SHOULDER REASON FOR EXAM: Female, 52 years old. Pain, decreased range of motion TECHNIQUE: 4 view(s) of the shoulder. COMPARISON: None. FINDINGS: Normal glenohumeral articulation. Normal acromioclavicular joint. Normal acromion. Normal humeral head and visualized proximal humerus. The soft tissue structures are unremarkable. Normal visualized pulmonary apex. RAD/Shoulder min 2 Views IMPRESSION: Normal x-ray examination of the shoulder. Electronically Signed: Parmjit Pike MD at 8:13 EDT ,
[2023-06-01 12:35] LABS: Absolute Lymphocyte Count 1.09 X10^3/uL (0.83-4.51); Absolute Neutrophil Count 4.3 X10^3/uL (2.0-7.7); Basophil# 0.02 X10^3/uL; Basophil% 0.3 % (0-1); Eosinophil# 0.18 X10^3/uL; Hematocrit 39.2 % (37-47); Hemoglobin 12.2 g/dL (12.0-15.0); Lymphocyte # 1.09 X10^3/ul (0.83-4.51); Lymphocyte % 18.2 % (19-41); Mean Corp Hgb Conc 31.1 g/dL (32-36); Mean Corpuscular Hgb 27.4 pg (27.0-32.0); Mean Corpuscular Volume 88.1 fL (81-99); Mean Platelet Vol. 10.4 fl (6.2-12.0); Monocyte# 0.35 X10^3/uL; Monocyte% 5.8 % (0-10); NRBC Flagged by Analyzer 0 % (0-5); Neutrophil # 4.32 X10^3/uL (2.7-7.7); Neutrophil % 72.2 % (47-70); Platelet Count 229 K/mm3 (150-450); RBC Distribution Width CV 13.1 % (11.6-14.6); Red Blood Count 4.45 M/mm3 (4.2-5.4)
[2023-06-01 12:57] LABS: Vitamin D,25 Hydroxy 36.5 ng/mL
[2023-06-01 13:37] LABS: ALB/GLOB Ratio 1.2 RATIO (0.9-2.4); AST(SGOT) 35 U/L (15-37); Alanine Aminotransfer ALT/SGPT 59 U/L (13-56); Albumin, Serum 3.6 g/dL (3.2-5.0); Alkaline Phosphatase 79 U/L (45-117); Anion Gap 7 (5-15); BUN 13 mg/dL (7-18); BUN/Creat Ratio 21.3 RATIO (10-20); Calcium,Total 9.3 mg/dL (8.5-10.1); Chloride 103 mmol/L (98-107); Cholesterol 159 mg/dL (200); Creatinine, Serum 0.61 mg/dL (0.55-1.02); EST Glomerular Filtration Rate 109 mL/min (>60); Est Glom Filt Rate - Afr Amer 132 mL/min (>60); Glucose 108 mg/dL (74-106); High Density Lipoprotein 41 mg/dL; Potassium 4.2 mmol/L (3.5-5.1); Protein, Total 6.6 g/dL (6.4-8.2); Sodium Level 137 mmol/L (136-145); Triglycerides 134 mg/dL; Very Low Density Lipoprotein 27 mg/dL (5-40)
== END | disposition home or self-care (01) ==
PROVIDERS: PCP Family Medicine; Referring Provider Family Medicine; Visit Provider Family Medicine
DX: Z00.01 Encounter for general adult medical examination with abnormal findings (principal); E55.9 Vitamin D deficiency, unspecified; I10 Essential (primary) hypertension; M25.511 Pain in right shoulder; M54.2 Cervicalgia; R20.0 Anesthesia of skin
CPT/HCPCS: 36415; 72050; 73030; 80053; 80061; 82306; 85025

== ENCOUNTER → 2023-09-16 | Outpatient (CLI) | payer SELFPAY | END | disposition home or self-care (01) | LOC: LABSPEC 11:33 | PROVIDERS: Referring Provider Obstetrics & Gynecology; Visit Provider Obstetrics & Gynecology | DX: N89.8 Other specified noninflammatory disorders of vagina (principal) | CPT/HCPCS: 87070; 87205 ==

== ENCOUNTER → 2023-09-30 | Outpatient (CLI) | payer SELFPAY ==
--- NOTE | 2023-09-30 07:42 | BI_ITS ---
MAMMOGRAPHY - BILATERAL SCREENING REASON FOR EXAM: Female, 53 years old. Routine annual screening examination. PERTINENT HISTORY: Non-contributory. TECHNIQUE: Digital bilateral breast cirilo (3D mammographic acquisition) in the CC and MLO projections. 2-D mediolateral oblique (MLO) and craniocaudad (CC) views of both breasts were obtained. CAD: Full Field Digital Mammography with Computer Added Detection was performed. COMPARISON: Comparison is made with prior study dated July 25, 2022 and September 24, 2021. FINDINGS: Breast Composition: The breasts are heterogeneously dense, which may obscure small masses. There are no dominant masses or suspicious calcifications. Stable asymmetry of breast tissue with more breast tissue was seen in the upper outer quadrant of the left breast as compared to the right side. No other significant abnormalities are identified. There has been no significant change since the prior study. BI/SCRN MAMM (CAD)W/CIRILO BILAT IMPRESSION: Stable bilateral screening mammogram. Yearly follow-up mammogram recommended. (A) ASSESSMENT CATEGORY: BIRADS Category 2: Benign. A letter regarding these results will be sent to the patient by the facility within 30 days. Approximately 10% of breast cancers are not detected by mammography. A normal mammogram should not delay biopsy of a clinically suspicious abnormality. [id number] Electronically Signed: Quintin Bray MD at 9:40 EDT ,
== END | disposition home or self-care (01) ==
LOC: OPBI 07:35
PROVIDERS: PCP Nurse Practitioner Family; Referring Provider Obstetrics & Gynecology; Visit Provider Obstetrics & Gynecology
DX: Z12.31 Encounter for screening mammogram for malignant neoplasm of breast (principal)
CPT/HCPCS: 77063; 77067

== ENCOUNTER → 2024-08-09 | Outpatient (CLI) | payer SELFPAY ==
[2024-08-09 15:48] LABS: Absolute Lymphocyte Count 1.17 X10^3/uL (0.83-4.51); Absolute Neutrophil Count 5.4 X10^3/uL (2.0-7.7); Basophil# 0.03 X10^3/uL; Basophil% 0.4 % (0-1); Eosinophil# 0.13 X10^3/uL; Eosinophils% 1.8 % (0-5); Hematocrit 39.9 % (37-47); Lymphocyte # 1.17 X10^3/ul (0.83-4.51); Lymphocyte % 16.2 % (19-41); Mean Corp Hgb Conc 32.6 g/dL (32-36); Mean Corpuscular Hgb 27.4 pg (27.0-32.0); Mean Platelet Vol. 10.8 fl (6.2-12.0); Monocyte# 0.43 X10^3/uL; NRBC Flagged by Analyzer 0 % (0-5); Neutrophil # 5.42 X10^3/uL (2.7-7.7); Neutrophil % 75.2 % (47-70); Platelet Count 259 K/mm3 (150-450); RBC Distribution Width CV 12.7 % (11.6-14.6); RBC Distribution Width SD 38.9 fl (35.1-43.9); Red Blood Count 4.75 M/mm3 (4.2-5.4); White Blood Count 7.2 K/mm3 (4.4-11.0)
[2024-08-09 17:23] LABS: ALB/GLOB Ratio 1.5 RATIO (0.9-2.4); AST(SGOT) 26 U/L (<=31); Alanine Aminotransfer ALT/SGPT 39 U/L (<=34); Albumin, Serum 4.1 g/dL (3.5-5.0); Alkaline Phosphatase 84 U/L (35-104); Anion Gap 10 (5-15); BUN 12 mg/dL (4-19); BUN/Creat Ratio 19.4 RATIO (10-20); Calcium,Total 9.2 mg/dL (7.6-11.0); Carbon Dioxide 26.4 mmol/L (21.0-32.0); Chloride 101 mmol/L (98-108); Cholesterol 158 mg/dL (<=200); EST Glomerular Filtration Rate 107 (>60); Globulin 2.7 g/dL (2.2-4.2); Glucose 101 mg/dL (70-99); High Density Lipoprotein 46 mg/dL; Low Density Lipoprotein Calc. 89 mg/dL; Potassium 4.7 mmol/L (3.3-5.1); Protein, Total 6.8 g/dL (5.9-8.4); Sodium Level 138 mmol/L (133-145); Total Bilirubin 0.61 mg/dL (0.00-1.30); Triglycerides 117 mg/dL; Very Low Density Lipoprotein 23 mg/dL (5-40); cholesterol:hdl ratio screen 3.46
== END | disposition home or self-care (01) ==
PROVIDERS: PCP Nurse Practitioner Family; Referring Provider Nurse Practitioner Family; Visit Provider Nurse Practitioner Family
DX: Z00.01 Encounter for general adult medical examination with abnormal findings (principal); I10 Essential (primary) hypertension; E55.9 Vitamin D deficiency, unspecified
CPT/HCPCS: 36415; 80053; 80061; 82306; 85025

== ENCOUNTER → 2024-09-02 | Outpatient (CLI) | payer SELFPAY ==
--- OUTSIDE RECORDS SUMMARY | 2024-09-02 07:35 | XMS RPT_ITS | CCD ---
Author Organization [facility] Care Team Providers Care Gate Person Name Role Phone Reji Nice Unavailable Unavailable PROVIDER, UNKNOWN Unavailable Unavailable Nani Oliveira Unavailable Unavailable PROVIDER, UNKNOWN Unavailable Unavailable Nani Oliveira Unavailable Unavailable Jaky Rodrigez Unavailable Unavailable Reji Nice Unavailable Unavailable Nani Oliveira Unavailable Unavailable PROVIDER, UNKNOWN Unavailable Unavailable Dr. Nani Oliveira Primary Care Provider Carmen Aguirre Attending Provider Unavailable Dr. Nani Oliveira Referring Provider [phone] Wade Macario Attending Provider Dr. Wade Macario Other Provider Dr. Nani Oliveira Primary Care Provider Dr. Nani Oliveira Referring Provider KIT Hills Attending Provider KIT Jacome Attending Provider Dr. Rosalinda Mosley Attending Provider JATIN Hill-C Carmen Primary Care Provider Nani Oliveira Primary Care Provider [phone] NANI OLIVEIRA Primary Care Unavailable JAIRO CRUZ Referring Unavailable NANI OLIVEIRA Primary Care Unavailable CIRILO BRISENO Attending Unavailable Sergio REFERENCE DATA EXPERT-C, Carmen Primary Care Provider Sergio REFERENCE DATA EXPERT-C, Carmen Referring Provider [phone] Leobardo Hills Attending Provider Sergio REFERENCE DATA EXPERT-CCarmen Attending Provider Leobardo Hills Attending Unavailable Sergio, Carmen Referring Unavailable Sergio, Carmen Primary Care Unavailable Sergio, Carmen Referring Unavailable NOT, DEFINED Primary Care Unavailable Rosalinda Mosley Attending Unavailable Sergio, Carmen Primary Care Unavailable Rosalinda Mosley Referring Unavailable Rosalinda Mosley Attending Unavailable Sergio, Carmen Referring Unavailable Sergio, Carmen Attending Unavailable Sergio, Carmen Primary Care Unavailable Rosalinda Mosley Referring Unavailable Rosalinda Mosley Attending Unavailable Vita Ayon Referring Unavailable Vita Ayon Attending Unavailable Vita Ayon Primary Care Unavailable Medications Current Medications Medication Drug Class(es) Dates Sig (Normalized) Sig (Original) [id number] 200 actuat albuterol 0.09 mg/actuat metered dose inhaler (7 sources) beta2-Adrenergic Agonist Start: 11-20-2020 Albuterol Sulfate 90 mcg/actuation HFA aerosol inhaler Active 2 NMA INHALATION EVERY 6 HOURS as needed for SOB November 20, 2020 12:00am Start: 11-20-2020 take 1 puff(s) by in halation every six hours Albuterol Sulfate Active 2 PUFF INHALATION EVERY 6 HOURS November 20, 2020 12:00am cetirizine hydrochloride 10 mg oral capsule (7 sources) Histamine-1 Receptor Antagonist Start: 11-20-2020 take 1 capsule by mouth once daily as needed Cetirizine (Zyrtec) 10 mg capsule Active 10 mg PO DAILY as needed for ALLERGIES November 20, 2020 12:00am cholecalciferol 0.05 mg oral capsule (7 sources) Vitamin D Start: 11-20-2020 take 1 capsule by mouth once daily Cholecalciferol (Vitamin D3) 50 mcg (2,000 unit) capsule Active 50 ug PO DAILY November 20, 2020 12:00am 24 hr fesoterodine fumarate 4 mg extended release oral tablet (2 sources) Start: 09-16-2023 take 1 tablet by mouth once daily Fesoterodine 4 mg tablet extended release 24 hr Active 4 mg PO DAILY September 16, 2023 12:00am fluconazole 150 mg oral tablet (20 sources) Azole Antifungal Start: 07-21-2024 Fluconazole 150 mg tablet Active 150 mg PO Every 3 Days 2 0 July 21, 2024 12:00am may repeat second dose 72 hrs after first dose if symptoms persist Start: 04-14-2022 End: 07-15-2022 Fluconazole (Diflucan) 150 m g tablet Discontinued 150 mg PO Every 3 Days April 14, 2022 1:00am July 15, 2022 8:22am may repeat second dose 72 hrs after first dose if symptoms persist Start: 01-25-2020 End: 11-20-2020 Fluconazole 150 mg tablet Di scontinued 150 mg PO .COMPLEX 2 January 25, 2020 1:00am November 20, 2020 8:59am 150 mg PO take one po now and repeat in 3 days Start: 07-07-2017 End: 09-29-2017 Fluconazole 150 mg tablet Di scontinued 150 mg PO .COMPLEX 2 July 07, 2017 12:00am September 29, 2017 8:06am 150 mg PO take one po now and repeat in 3 days lisinopril 20 mg oral tablet (2 sources) Angiotensin Converting Enzyme Inhibitor Start: 09-16-2023 take 1 tablet by mouth once daily Lisinopril 20 mg tablet Active 20 mg PO DAILY September 16, 2023 12:00am Completed/Discontinued Medications Medication Drug Class(es) Dates Sig (Normalized) Sig (Original) amoxicillin 875 mg / clavulanate 125 mg oral tablet (7 sources) Penicillin-class Antibacterial Start: 07-21-2024 End: 07-31-2024 Amoxicillin-Pot Clavulanate 875-125 mg tablet Discontinued 1 {tbl} PO Q12H 20 July 21, 2024 12:00am July 30, 2024 12:00am July 31, 2024 12:08am Start: 04-14-2022 End: 04-24-2022 Amoxicillin-Pot Clavulanate 875-125 mg tablet Discontinued 1 {tbl} PO Q12H 20 April 14, 2022 1:00am April 23, 2022 1:00am April 24, 2022 1:04am Start: 04-14-2022 End: 04-24-2022 take 1 tablet by mouth every twelve hours Amoxicillin-Pot Clavulanate Discontinued 1 TABLET PO Q12H 20 April 14, 2022 1:00am April 24, 2022 1:04am aspirin 325 mg oral tablet (7 sources) Platelet Aggregation Inhibitor, Nonsteroidal Anti-inflammatory Drug Start: 06-08-2019 End: 01-25-2020 take 1 tablet by mouth twice daily Aspirin 325 MG tablet Discontinued 325 mg PO TWICE A DAY June 08, 2019 12:00am January 25, 2020 3:46pm azithromycin 250 mg oral tablet (7 sources) Macrolide Antimicrobial Start: 03-04-2021 End: 03-16-2021 take 2-5 tablets by mouth once daily Azithromycin 250 mg tablet Discontinued 0 PO .COMPLEX 6 March 04, 2021 1:00am March 16, 2021 1:14pm take 500 mg today (day 1), then 250 mg for 4 days (days 2-5) PO benzonatate 200 mg oral capsule (5 sources) Non-narcotic Antitussive Start: 05-28-2022 End: 07-15-2022 take 1 capsule by mouth three times daily as needed for cough Benzonatate 200 mg capsule Discontinued 200 mg PO THREE TIMES A DAY as needed for cough May 28, 2022 12:00am July 15, 2022 8:22am gabapentin 100 mg oral capsule (7 sources) Anti-epileptic Agent Start: 08-18-2019 End: 01-25-2020 take 1 capsule by mouth once daily Gabapentin 100 mg capsule Discontinued 100 mg PO DAILY August 18, 2019 12:00am January 25, 2020 3:47pm Lactobacillus Combination No.4 (Probiotic) 3 billion cell Capsule (7 sources) Start: 09-10-2021 End: 09-16-2023 take 3 capsules by mouth once daily Lactobacillus Combination No.4 (Probiotic) 3 billion cell Capsule Discontinued 3000 NMA PO DAILY September 10, 2021 12:00am September 16, 2023 9:28am administer with a meal Start: 09-10-2021 take 3 capsules by m outh once daily Lactobacillus Combination No.4 (Probiotic) 3 billion cell Capsule Active 3000 MMU CELLS PO DAILY September 10, 2021 12:00am administer with a meal methylPREDNISolone 4 mg oral tablet (12 sources) Corticosteroid Start: 05-28-2022 End: 07-15-2022 take 1 tablet by mouth once Methylprednisolone (Medrol (Ryley)) 4 mg tablets,dose pack Discontinued 0 PO per package directions May 28, 2022 12:00am July 15, 2022 8:22am PO PER PKG DIR Start: 03-04-2021 End: 03-09-2021 take 1 tablet by mouth once Methylprednisolone (Medrol (Ryley)) 4 mg tablets,dose pack Discontinued 4 mg PO per package directions 21 5 March 04, 2021 1:00am March 08, 2021 1:00am March 09, 2021 1:01am valACYclovir 1000 mg oral tablet (7 sources) Herpesvirus Nucleoside Analog DNA Polymerase Inhibitor, Herpes Simplex Virus Nucleoside Analog DNA Polymerase Inhibitor, Herpes Zoster Virus Nucleoside Analog DNA Polymerase Inhibitor Start: 06-08-2019 End: 08-18-2019 take 1 tablet by mouth every eight hours Valacyclovir 1,000 MG tablet Discontinued 1000 mg PO Q8H June 08, 2019 12:00am August 18, 2019 8:16am x7 days 24 hr venlafaxine 75 mg extended release oral capsule (7 sources) Serotonin and Norepinephrine Reuptake Inhibitor Start: 08-18-2019 End: 11-20-2020 take 1 capsule by mouth once daily Venlafaxine (Effexor Xr) 75 mg capsule,extended release 24hr Discontinued 75 mg PO DAILY August 18, 2019 12:00am November 20, 2020 8:59am Vibegron (4 sources) Start: 07-15-2022 End: 09-16-2023 take 1 tablet by mouth once daily Vibegron (Gemtesa) 75 mg tablet Discontinued 75 mg PO DAILY July 15, 2022 12:00am September 16, 2023 9:29am Start: 07-15-2022 take 1 tablet by ismael th once daily Vibegron (Gemtesa) 75 mg tablet Active 75 MG PO DAILY July 15, 2022 12:00am Problems Active Problems Problem Classification Problem Date Documented Date Episodic/Chronic Acute bronchitis (9 sources) Acute bronchitis; Translations: [Acute bronchitis, unspecified] 03-04-2021 Episodic Essential hypertension (3 sources) Hypertensive disorder; Translations: [Essential (primary) hypertension] Onset: 08-10-2024 09-16-2023 Chronic Genitourinary symptoms and ill-defined conditions (8 sources) Incontinence; Translations: [Mixed incontinence] 11-20-2020 Chronic Comment on above: s/p PT and urogyn co nsult ua and culture ordered Immunizations and screening for infectious disease (8 sources) Contact with and (suspected) exposure to other viral communicable diseases; Translations: [Contact with or suspected exposure to other viral communicable disease] Onset: 07-21-2024 05-10-2021 Episodic Malaise and fatigue (4 sources) Asthenia; Translations: [Weakness] Onset: 08-11-2022 08-11-2022 Episodic Menopausal disorders (7 sources) Menopausal syndrome; Translations: [Menopausal and female climacteric states] 11-20-2020 Chronic Comment on above: didn't tolerate effe xor, discussed management options, no intervention at this time. Mycoses (7 sources) Opportunistic mycosis; Translations: [Candidiasis, unspecified] 04-14-2022 Episodic Noninfectious gastroenteritis (7 sources) Chronic diarrhea; Translations: [Noninfective gastroenteritis and colitis, unspecified] 11-20-2020 Episodic Comment on above: GI consult. Nonmalignant breast conditions (6 sources) Breast lump; Translations: [Unspecified lump in the right breast, unspecified quadrant] 07-15-2022 Episodic Comment on above: unilateral per patie nt diag mamm bilateral ordered US right breast Nonspecific chest pain (8 sources) Chest pain; Translations: [Chest pain, unspecified] Onset: 08-10-2024 10-08-2019 Episodic Open wounds of extremities (2 sources) Cat bite - wound; Translations: [Open bite of unspecified forearm, initial encounter] 07-21-2024 Episodic Other female genital disorders (2 sources) Vaginal irritation; Translations: [Other specified noninflammatory disorders of vagina] 09-16-2023 Episodic Comment on above: culture sent Other upper respiratory infections (20 sources) Acute bacterial sinusitis; Translations: [Acute sinusitis, unspecified] Onset: 07-21-2024 03-16-2021 Episodic Unclassified (3 sources) Large breast; Translations: [Increased size of breast] 07-15-2022 Past or Other Problems Problem Classification Problem Date Documented Date Episodic/Chronic Other female genital disorders (1 source) Other specified noninflammatory disorders of vagina; Translations: [Other specified noninflammatory disorders of vagina] Onset: 10-08-2023 Episodic Other screening for suspected conditions (not mental disorders or infectious disease) (10 sources) Patient encounter status; Translations: [Encounter for screening for malignant neoplasm of colon] Onset: 11-02-2023 Episodic Results Test Name Value Interpretation Reference Range Facility Absolute lymphocyte countOrd ered By: [facility] on 08-09-2024 Lymphocytes Auto (Unsp spec) [#/Vol] 1.17 10*3/uL 0.83-4.51 [facility] Absolute neutrophil countOrd ered By: [facility] on 08-09-2024 Neutrophils (Bld) [#/Vol] 5.4 10*3/uL 2.0-7.7 [facility] Anion gap in Serum or Plasma [facility] Anion gap [Moles/Vol] 10 mmol/L 5-15 [facility] Automated lymphocyte count a s percentage of total leukocytesOrdered By: [facility] on 08-09-2024 Lymphocytes/100 WBC Auto (Unsp spec) 16.2 % Low 19-41 [facility] BUN/creatinine ratioOrdered By: [facility] on 08-09-2024 Urea nitrogen/Creatinine [Mass ratio] 19.4 mg/mg 10-20 [facility] Basophil percentageOrdered B y: [facility] 08-09-2024 Basophils/100 WBC (Bld) 0.4 % 0-1 [facility] Bilirubin, totalOrdered By: [facility] on 08-09-2024 Bilirubin [Mass/Vol] 0.61 mg/dL 0.00-1.30 [facility] CBC W/Diff, Automatedon 07-24 Absolute Lymph 1.17 X10 3/uL Normal 0.83-4.51 [facility] Comment on above: Performed By: #### L 506.1001, L500.4100, L100.0100, L500.4050 #### [facility] [address] [place], [address] Absolute Neut 5.4 X10 3/uL Normal 2.0-7.7 [facility] Comment on above: Performed By: #### L 506.1001, L500.4100, L100.0100, L500.4050 #### [facility] [address] [place], [address] Basophils/100 WBC (Bld) 0.4 % Normal 0-1 [facility] Comment on above: Performed By: #### L 506.1001, L500.4100, L100.0100, L500.4050 #### [facility] [address] [place], [address] Eosinophils/100 WBC (Bld) 1.8 % Normal 0-5 [facility] Comment on above: Performed By: #### L 506.1001, L500.4100, L100.0100, L500.4050 #### [facility] [address] [place], [address] Erythrocyte distribution width (RBC) [Ratio] 12.7 % Normal 11.6-14.6 [facility] Comment on above: Performed By: #### L 506.1001, L500.4100, L100.0100, L500.4050 #### [facility] [address] [place] [place], [address] Hematocrit (Bld) [Volume fraction] 39.9 % Normal 37-47 [facility] Comment on above: Performed By: #### L 506.1001, L500.4100, L100.0100, L500.4050 #### [facility] [address] [place], [address] Hemoglobin (Bld) [Mass/Vol] 13.0 g/dL Normal 12.0-15.0 [facility] Comment on above: Performed By: #### L 506.1001, L500.4100, L100.0100, L500.4050 #### [facility] [address] [place], [address] IG% 0.400 Normal 0.0-0.9 [facility] Comment on above: Result Comment: IG% - Immature Granulocytes (promyelocytes, myelocytes and metamyelocytes) > 1% indicates that a LEFT SHIFT is Present. Performed By: #### L 506.1001, L500.4100, L100.0100, L500.4050 #### [facility] [address] [place], [address] Lymphocytes/100 WBC (Bld) 16.2 % Low 19-41 [facility] Comment on above: Performed By: #### L 506.1001, L500.4100, L100.0100, L500.4050 #### [facility] [address] [place], [address] MCH (RBC) [Entitic mass] 27.4 pg Normal 27.0-32.0 [facility] Comment on above: Performed By: #### L 506.1001, L500.4100, L100.0100, L500.4050 #### [facility] [address] [place], [address] MCHC (RBC) [Mass/Vol] 32.6 g/dL Normal 32-36 [facility] Comment on above: Performed By: #### L 506.1001, L500.4100, L100.0100, L500.4050 #### [facility] [address] [place], [address] MCV (RBC) [Entitic vol] 84.0 fL Normal 81-99 [facility] Comment on above: Performed By: #### L 506.1001, L500.4100, L100.0100, L500.4050 #### [facility] [address] [place], [address] Monocytes/100 WBC (Bld) 6.0 % Normal 0-10 [facility] Comment on above: Performed By: #### L 506.1001, L500.4100, L100.0100, L500.4050 #### [facility] [address] [place], [address] Neutrophils/100 WBC (Bld) 75.2 % High 47-70 [facility] Comment on above: Performed By: #### L 506.1001, L500.4100, L100.0100, L500.4050 #### [facility] [address] [place], [address] Nucleated RBC (Bld) [#/Vol] 0 10*3/uL Normal 0-5 [facility] Comment on above: Performed By: #### L 506.1001, L500.4100, L100.0100, L500.4050 #### [facility] [address] [place], [address] Platelet mean volume (Bld) [Entitic vol] 10.8 fL Normal 6.2-12.0 [facility] Comment on above: Performed By: #### L 506.1001, L500.4100, L100.0100, L500.4050 #### [facility] [address] [place], [address] Platelets (Bld) [#/Vol] 259 10*3/uL Normal 150-450 [facility] Comment on above: Performed By: #### L 506.1001, L500.4100, L100.0100, L500.4050 #### [facility] [address] [place], [address] RBC (Bld) [#/Vol] 4.75 10*6/uL Normal 4.2-5.4 [facility] Comment on above: Performed By: #### L 506.1001, L500.4100, L100.0100, L500.4050 #### [facility] [address] [place], [address] RDW SD 38.9 fl Normal 35.1-43.9 [facility] Comment on above: Performed By: #### L 506.1001, L500.4100, L100.0100, L500.4050 #### [facility] [address] [place], [address] WBC (Bld) [#/Vol] 7.2 10*3/uL Normal 4.4-11.0 [facility] Comment on above: Performed By: #### L 506.1001, L500.4100, L100.0100, L500.4050 #### [facility] [address] [place], [address] Calculated very low density lipoprotein (VLDL) cholesterol measurementOrdered By: Carmen Hill on 08-09-2024 Calculated very low density lipoprotein (VLDL) cholesterol measurement 23 mg/dL 5-40 [facility] Carbon dioxide, total [Moles /volume] in Central venous bloodOrdered By: Carmen Hill on 08-09-2024 CO2 [Moles/Vol] 26.4 mmol/L 21.0-32.0 [facility] Chloride assayOrdered By: Ra gris Hill on 08-09-2024 Chloride [Moles/Vol] 101 mmol/L 98-108 [facility] Comprehensive Metabolic Prof ilon 08-09-2024 Albumin [Mass/Vol] 4.1 g/dL Normal 3.5-5.0 [facility] Comment on above: Performed By: #### L 506.1001, L500.4100, L100.0100, L500.4050 #### [facility] [address] [place], [address] Albumin/Globulin [Mass ratio] 1.5 {ratio} Normal 0.9-2.4 [facility] Comment on above: Performed By: #### L 506.1001, L500.4100, L100.0100, L500.4050 #### [facility] [address] [place], [address] ALK PHOS 84 U/L Normal 35-104 [facility] Comment on above: Performed By: #### L 506.1001, L500.4100, L100.0100, L500.4050 #### [facility] [address] [place], [address] ALT [Catalytic activity/Vol] 39 U/L High <=34 [facility] Comment on above: Performed By: #### L 506.1001, L500.4100, L100.0100, L500.4050 #### [facility] [address] [place], [address] AST [Catalytic activity/Vol] 26 U/L Normal <=31 [facility] Comment on above: Performed By: #### L 506.1001, L500.4100, L100.0100, L500.4050 #### [facility] [address] [place], [address] Bilirubin [Mass/Vol] 0.61 mg/dL Normal 0.00-1.30 [facility] Comment on above: Performed By: #### L 506.1001, L500.4100, L100.0100, L500.4050 #### [facility] [address] [place], [address] BUN/CRE 19.4 RATIO Normal 10-20 [facility] Comment on above: Performed By: #### L 506.1001, L500.4100, L100.0100, L500.4050 #### [facility] [address] [place], [address] Calcium [Mass/Vol] 9.2 mg/dL Normal 7.6-11.0 [facility] Comment on above: Performed By: #### L 506.1001, L500.4100, L100.0100, L500.4050 #### [facility] [address] [place], [address] Chloride [Moles/Vol] 101 mmol/L Normal 98-108 [facility] Comment on above: Performed By: #### L 506.1001, L500.4100, L100.0100, L500.4050 #### [facility] [address] [place], [address] CO2 [Moles/Vol] 26.4 mmol/L Normal 21.0-32.0 [facility] Comment on above: Performed By: #### L 506.1001, L500.4100, L100.0100, L500.4050 #### [facility] [address] [place], [address] Creatinine [Mass/Vol] 0.60 mg/dL Low 0.70-1.20 [facility] Comment on above: Performed By: #### L 506.1001, L500.4100, L100.0100, L500.4050 #### [facility] [address] [place], [address] GAP 10 Normal 5-15 [facility] Comment on above: Performed By: #### L 506.1001, L500.4100, L100.0100, L500.4050 #### [facility] [address] [place], [address] GFR/1.73 sq M.predicted among non-blacks MDRD (S/P/Bld) [Vol rate/Area] 107 mL/min/{1.73_m2} Normal >60 [facility] Comment on above: Result Comment: mL/m in/1.73m2 CKD-EPI Creatinine Equation (2020) Performed By: #### L 506.1001, L500.4100, L100.0100, L500.4050 #### [facility] [address] [place], [address] Globulin (S) [Mass/Vol] 2.7 g/dL Normal 2.2-4.2 [facility] Comment on above: Performed By: #### L 506.1001, L500.4100, L100.0100, L500.4050 #### [facility] [address] [place], [address] Glucose [Mass/Vol] 101 mg/dL High 70-99 [facility] Comment on above: Performed By: #### L 506.1001, L500.4100, L100.0100, L500.4050 #### [facility] [address] [place], [address] Potassium [Moles/Vol] 4.7 mmol/L Normal 3.3-5.1 [facility] Comment on above: Performed By: #### L 506.1001, L500.4100, L100.0100, L500.4050 #### [facility] [address] [place], [address] Sodium [Moles/Vol] 138 mmol/L Normal 133-145 [facility] Comment on above: Performed By: #### L 506.1001, L500.4100, L100.0100, L500.4050 #### [facility] [address] [place], [address] T PROT 6.8 g/dL Normal 5.9-8.4 [facility] Comment on above: Performed By: #### L 506.1001, L500.4100, L100.0100, L500.4050 #### [facility] [address] [place], [address] Urea nitrogen [Mass/Vol] 12 mg/dL Normal 4-19 [facility] Comment on above: Performed By: #### L 506.1001, L500.4100, L100.0100, L500.4050 #### [facility] [address] [place], [address] Eosinophil percentageOrdered By: Carmen Hill on 08-09-2024 Eosinophils/100 WBC (Bld) 1.8 % 0-5 [facility] Erythrocyte distribution wid th ratioOrdered By: Carmen Hill on 08-09-2024 Erythrocyte distribution width (RBC) [Ratio] 12.7 % 11.6-14.6 [facility] Erythrocyte distribution wid th standard deviationOrdered By: Carmen Hill on 08-09-2024 Erythrocyte distribution width (RBC) [Ratio] 38.9 fl 35.1-43.9 [facility] Glomerular filtration rate ( GFR) estimation/1.73 sq m using serum, plasma, or whole bOrdered By: Carmen Hill on 08-09-2024 GFR/1.73 sq M.predicted among non-blacks MDRD (S/P/Bld) [Vol rate/Area] 107 mL/min/{1.73_m2} >60 [facility] Comment on above: mL/min/1.73m2 CKD-EP I Creatinine Equation (2020) Hematocrit Auto (Bld) [Volum e fraction]Ordered By: Carmen Hill on 08-09-2024 Hematocrit (Bld) [Volume fraction] 39.9 % 37-47 [facility] Hemoglobin measurementOrdere d By: Carmen Hill on 08-09-2024 Hemoglobin (Bld) [Mass/Vol] 13.0 g/dL 12.0-15.0 [facility] Immature granulocytes/100 WB C Auto (Bld)Ordered By: Carmen Hill on 08-09-2024 Immature granulocytes/100 WBC (Bld) 0.400 % 0.0-0.9 [facility] Comment on above: IG% - Immature Granu locytes (promyelocytes, myelocytes and metamyelocytes) > 1% indicates that a LEFT SHIFT is Present. LDL calc ser/plasOrdered By: Carmen Hill on 08-09-2024 Cholesterol in LDL [Mass/Vol] 89 mg/dL [facility] Comment on above: Ytzyhsnnxy=185-123 m g/dL & Higher Nxkc=937 mg/dL or greater Laboratory - Chemistry and C hemistry - challengeOrdered By: Carmen Hill on 08-09-2024 AST [Catalytic activity/Vol] 26 U/L <32 [facility] Lipid Profileon 08-09-2024 CHOL:HDL 3.46 Normal [facility] Comment on above: Performed By: #### L 506.1001, L500.4100, L100.0100, L500.4050 #### [facility] [address] [place], [address] Cholesterol [Mass/Vol] 158 mg/dL Normal <=200 [facility] Comment on above: Result Comment: Chol esterol level, Desirable <200 mg/dL Borderline high cholesterol 200-239 mg/dL High cholesterol >=240 mg/dL Recommendations of the NCEP Adult Treatment Panel for the following risk-cutoff thresholds for the [place] population. Performed By: #### L 506.1001, L500.4100, L100.0100, L500.4050 #### [facility] [address] [place], [address] Cholesterol in HDL [Mass/Vol] 46 mg/dL Normal [facility] Comment on above: Result Comment: Antoinette onal Cholesterol Education Program (NCEP) guidelines: <40 mg/dL: Low HDL-cholesterol (major risk factor for CHD) >= 60 mg/dL: High HDL-cholesterol (negative risk factor for CHD) HDL-cholesterol is affected by a number of factors, e.g. smoking, exercise, hormones, sex and age. Performed By: #### L 506.1001, L500.4100, L100.0100, L500.4050 #### [facility] [address] [place], [address] Cholesterol in LDL [Mass/Vol] 89 mg/dL Normal [facility] Comment on above: Result Comment: Bord awguyl=535-989 mg/dL Higher Pydh=831 mg/dL or greater Performed By: #### L 506.1001, L500.4100, L100.0100, L500.4050 #### [facility] [address] [place], [address] Cholesterol in VLDL [Mass/Vol] 23 mg/dL Normal 5-40 [facility] Comment on above: Performed By: #### L 506.1001, L500.4100, L100.0100, L500.4050 #### [facility] [address] [place], [place], [address] Triglyceride [Mass/Vol] 117 mg/dL Normal [facility] Comment on above: Result Comment: The drugs N-Acetylcysteine and Metamizole may falsely depress this assay. Normal range: <150 mg/dL Borderline High: 150-199 mg/dL High: 200-499 mg/dL Very High: >500 mg/dL Performed By: #### L 506.1001, L500.4100, L100.0100, L500.4050 #### [facility] [address] [place], [place], [id number] MCV (mean corpuscular volume ) determinationOrdered By: Carmen Hill on 08-09-2024 MCV (RBC) [Entitic vol] 84.0 fL 81-99 [facility] Mean corpuscular hemoglobin (MCH) determinationOrdered By: Carmen Hill on 08-09-2024 MCH (RBC) [Entitic mass] 27.4 pg 27.0-32.0 [facility] Mean corpuscular hemoglobin concentration (MCHC) determinationOrdered By: Carmen Hill on 08-09-2024 MCHC (RBC) [Mass/Vol] 32.6 g/dL 32-36 [facility] Mean platelet volume determi nationOrdered By: Carmen Hill on 08-09-2024 Platelet mean volume (Bld) [Entitic vol] 10.8 fL 6.2-12.0 [facility] Monocyte percentageOrdered B y: Carmen Hill on 08-09-2024 Monocytes/100 WBC (Bld) 6.0 % 0-10 [facility] Neutrophil percentageOrdered By: Carmen Hill on 08-09-2024 Neutrophils/100 WBC (Bld) 75.2 % High 47-70 [facility] Nucleated red blood cell per centageOrdered By: Carmen Hill on 08-09-2024 Nucleated RBC/100 WBC (Bld) [Ratio] 0 % 0-5 [facility] Platelet countOrdered By: Ra gris Hill on 08-09-2024 Platelets (Bld) [#/Vol] 259 10*3/uL 150-450 [facility] Potassium measurement (mass/ volume)Ordered By: Carmen Hill on 08-09-2024 Potassium (Unsp spec) [Mass/Vol] 4.7 mmol/L 3.3-5.1 [facility] RBC Auto (Bld) [#/Vol]Ordere d By: Carmen Hill on 08-09-2024 RBC (Bld) [#/Vol] 4.75 10*6/uL 4.2-5.4 [facility] Screening total cholesterol/ high density lipoprotein (HDL) cholesterol ratioOrdered By: Carmen Hill on 08-09-2024 Cholesterol.total/Choles terol in HDL [Mass ratio] 3.46 {ratio} [facility] Serum creatinine measurement (mass/volume)Ordered By: Carmen Hill on 08-09-2024 Creatinine [Mass/Vol] 0.60 mg/dL Low 0.70-1.20 [facility] Serum globulin measurementOr dered By: Carmen Hill on 08-09-2024 Globulin (S) [Mass/Vol] 2.7 g/dL 2.2-4.2 [facility] Serum glucose measurement (m ass/volume)Ordered By: Carmen Hill on 08-09-2024 Glucose [Mass/Vol] 101 mg/dL High 70-99 [facility] Serum or plasma alanine choudhury otransferase (ALT) measurementOrdered By: Carmen Hill on 08-09-2024 ALT [Catalytic activity/Vol] 39 U/L High <35 [facility] Serum or plasma albumin maggy urement (mass/volume)Ordered By: Carmen Hill on 08-09-2024 Albumin [Mass/Vol] 4.1 g/dL 3.5-5.0 [facility] Serum or plasma albumin/glob ulin mass ratioOrdered By: Carmen Hill 08-09-2024 Albumin/Globulin [Mass ratio] 1.5 {ratio} 0.9-2.4 [facility] Serum or plasma alkaline becca sphatase measurementOrdered By: Carmen Hill on 08-09-2024 ALP [Catalytic activity/Vol] 84 U/L 35-104 [facility] Serum or plasma calcium maggy urement (mass/volume)Ordered By: Carmen Hill on 08-09-2024 Calcium [Mass/Vol] 9.2 mg/dL 7.6-11.0 [facility] Serum or plasma cholesterol in HDL measurement (mass/volume)Ordered By: Carmen Hill on 08-09-2024 Cholesterol in HDL [Mass/Vol] 46 mg/dL >40 [facility] Comment on above: National Cholesterol Education Program (NCEP) guidelines:<40 mg/dL: Low HDL-cholesterol (major risk factor for CHD)>= 60 mg/dL: High HDL-cholesterol (negative risk factor for CHD)HDL-cholesterol is affected by a number of factors, e.g. smoking, exercise, hormones, sex and age. Serum or plasma cholesterol measurement (mass/volume)Ordered By: Carmen Hill on 08-09-2024 Cholesterol [Mass/Vol] 158 mg/dL <201 [facility] Comment on above: Cholesterol level, D esirable <200 mg/dLBorderline high cholesterol 200-239 mg/dLHigh cholesterol >=240 mg/dLRecommendations of the NCEP Adult Treatment Panel for the following risk-cutoff thresholds for the [place] population. Serum or plasma urea nitroge n measurement (mass/volume)Ordered By: Carmen Hill on 08-09-2024 Urea nitrogen [Mass/Vol] 12 mg/dL 4-19 [facility] Sodium levelOrdered By: Tiana Hill on 08-09-2024 Sodium [Moles/Vol] 138 mmol/L 133-145 [facility] Total proteinOrdered By: Adolfo Hill on 08-09-2024 Protein [Mass/Vol] 6.8 g/dL 5.9-8.4 [facility] Triglycerides measurementOrd ered By: Carmen Hill on 08-09-2024 Triglyceride [Mass/Vol] 117 mg/dL <199 [facility] Comment on above: The drugs N-Acetylcy steine and Metamizole may falsely depress this assay. Normal range: <150 mg/dLBorderline High: 150-199 mg/dLHigh: 200-499 mg/dLVery High: >500 mg/dL Vitamin D,25 Hydroxyon 08-09 Vitamin D 25-OH 22.0 ng/mL Low 30-100 [facility] Comment on above: Result Comment: Rola min D Status Deficiency: <20 ng/mL (50nmol/L) Insufficiency: 20-30 ng/mL (50-75 nmol/L) Sufficiency: 30-100 ng/mL (75-250 nmol/L) Toxicity: >100 ng/mL (>250 nmol/L) Performed By: #### L 506.1001, L500.4100, L100.0100, L500.4050 #### [facility] [address] [place], [address] White blood cell (WBC) count Ordered By: Carmen Hill on 08-09-2024 WBC (Bld) [#/Vol] 7.2 10*3/uL 4.4-11.0 [facility] Urgent Care Visit Reporton 0 07-21-2024 Urgent Care Visit Report [facility] [address], [address] [place], [place] [address] OFFICE VISIT Date of Service: 07/21/24 MR#: [id number] Acct: [id number] Name: AMINATA BARBER Rep #: [id number] : 1970 Provider: KIT Fernandez Age/Sex: 53/F Location: [facility] [place] Status: Signed Intake Vital Signs 09/16/23 09:31 07/21/24 07:35 Height 5 ft 1 in BP 134/76 H Blood Pressure Location Lt brachial Position Sitting Respiration 16 Pulse 74 Pulse Source NIBP Temp 98.4 F Temp Source Oral Pulse Oximetry (%) 97 Oxygen Delivery Method room air Intake Visit Reasons: CAT BITES Chief Complaint: multiple cat bites Lining Ironer Required: No Is patient in pain?: Yes Allergies No Known Allergies Allergy (Verified 07/21/24 07:36) Is last menstrual period known: No Post menopausal: Yes Patient : No Have you fallen in the past year?: Yes Nurse's Note: multiple cat bites/scratches to right hand, left hand and forearm. trying to remove fishing hook from cat yesterday, cat bit and scratched pt. pt washed well with soap and water, also used peroxide at home. Tdap past due. [facility] Medical History (Updated 07/21/24 @ 07:45 by Leobardo PANTOJA, PA) Hypertension Acute pharyngitis, unspecified URI (upper respiratory infection) Depression Diabetes Anemia Fatty liver Back pain Migraine headache Blackout Gastric reflux Non-smoker Shortness of breath on exertion Leg cramps History of edema History of echocardiogram Leaky heart valve Carpal tunnel syndrome Asthma History of depression Surgical History History of tooth extraction Hx laparoscopic cholecystectomy Hx of abdominal hysterectomy Family History Mother Heart disease Diabetes Father Cancer leukemia Social History Smoking Status: Never smoker alcohol intake: never substance use type: does not use caffeine: Yes what type of physical activity do you participate in: walking seatbelt use: always do you feel safe at home: Yes 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 Patient states she was trying to get the cat untangled from a fishing line when it bit and scratched her left arm as well as her right thumb. She is unaware of her last tetanus immunization. She denies numbness, tingling or loss of range of motion. No other associated symptoms or alleviating/aggravati ng factors. ROS Const Constitutional: No other (As above) Exam Const General: cooperative and healthy appearing Skin General: no rashes or lesions noted Neuro General: patient alert Extrem General: full ROM and capillary refill normal Other: Multiple puncture wounds and scratches on the left forearm with some ecchymosis as well as a singular bite to the right thumb. Psych Appearance: grossly normal Mental Status: mental status grossly normal Coding Level of Care Code Off vis,est,level 3 Diagnoses Cat bite of forearm S51.859A; W55.01XA Assessment and Plan Assessment and Plan (1) Cat bite of forearm: Status: Acute Plan: Augmentin as prescribed today. Additionally patient given a prescription for Diflucan as she states that she typically gets a yeast infection after antibiotic use. Encouraged to get plenty of rest, drink lots of clear liquids, and use Tylenol or Ibuprofen (unless contraindicated) for fever and comfort. Patient also educated on other symptomatic management techniques. To be seen in 7-10 days if no improvement; sooner if worsening of symptoms. Patient advised of potential red flags and when appropriate to report to the ED. Patient verbalized understanding and agreement with all the above. Orders: Orders Tdap Immunization Today Z23 - Encounter for immunization Medications: New amoxicillin-pot clavulanate 875-125 mg 1 TAB PO Q12H 10 days 20 tabs 0RF J01.90 - Acute sinusitis, unspecified Clinical Quality Measures Falls Risk Screening/Assistive Devices Have you fallen in the past year?: Yes 07/21/24 0747 Date Leobardo Moraes Signature: Date (if applicable) CC: Normal [facility] SCRN MAMM (CAD)W/CIRILO BILATo n 09-30-2023 SCRN MAMM [facility] Imaging Services [address] [place] [address] [id number] SCRN MAMM (CAD)W/CIRILO BILAT MR#: [id number] Acct: [id number] Name: AMINATA BARBER Rep #: [id number] : 1970 F 53 From: Quintin arias MD PCP: IRENE Bravo Status: [facility] Study: SCRN MAMM (CAD)W/CIRILO BILAT Date of Exam: 09/15 Exam# [id number] Ordering Dr: Rosalinda Mosley [id number] MAMMOGRAPHY - BILATERAL SCREENING REASON FOR EXAM: Female, 53 years old. Routine annual screening examination. PERTINENT HISTORY: Non-contributory. TECHNIQUE: Digital bilateral breast cirilo (3D mammographic acquisition) in the CC and MLO projections. 2-D mediolateral oblique (MLO) and craniocaudad (CC) views of both breasts were obtained. CAD: Full Field Digital Mammography with Computer Added Detection was performed. COMPARISON: Comparison is made with prior study dated July 25, 2022 and September 24, 2021. FINDINGS: Breast Composition: The breasts are heterogeneously dense, which may obscure small masses. There are no dominant masses or suspicious calcifications. Stable asymmetry of breast tissue with more breast tissue was seen in the upper outer quadrant of the left breast as compared to the right side. No other significant abnormalities are identified. There has been no significant change since the prior study. BI/SCRN MAMM (CAD)W/CIRILO BILAT IMPRESSION: Stable bilateral screening mammogram. Yearly follow-up mammogram recommended. (A) ASSESSMENT CATEGORY: BIRADS Category 2: Benign. A letter regarding these results will be sent to the patient by the facility within 30 days. Approximately 10% of breast cancers are not detected by mammography. A normal mammogram should not delay biopsy of a clinically suspicious abnormality. [id number] Electronically Signed: Quintin Bray MD at 9:40 EDT , CC: IRENE Hill; Dr. 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 No yeast, Gardnerella, Neisseria or beta-hemolytic Streptococcus isolated. [facility] Comment on above: Performed By: #### M 100.2000, [id number] #### [facility] [address] [place], [place], [address] Gram Stainon 09-16-2023 GS Reason for Exam: vaginal irritation Gram Stain 4+ Gram positive rods Rare White Blood Cells No Gram negative diplococci Score = 0 Interpretation: 0-3 Normal, 4-6 Intermediate, 7-10 Positive BV Normal [facility] Comment on above: Performed By: #### M 100, [id number] #### [facility] [address] [place], [address] Food Services Manager Office Visit Reporton 09-16-2023 Food Services Manager Office Visit Report [facility] [address] [place] [address] OFFICE VISIT Date of Service: 09/16/23 MR#: [id number] Acct: [id number] Name: AMINATA BARBER Rep #: [id number] : 1970 Provider: Dr. Rosalinda stallings MD Age/Sex: 53/F Location: [facility] [place] [facility] Status: Signed Intake Vital Signs 07/15/22 08:19 09/16/23 09:27 09/16/23 09:31 Height 5 ft 1 in 5 ft 1 in 5 ft 1 in Weight: 277 lb BMI 52.3 BP 113/77 Intake Visit Reasons: Annual (PROJ MGR) Lining Ironer Required: No Is patient in pain?: No Allergies No Known Allergies Allergy (Verified 09/16/23 09:28) Medications ???Medication ???Instructions ???Recorded ???Confirmed ???Type albuterol sulfate 90 mcg/actuation 2 puff inhalation Q6H PRN SOB 11/20/20 09/16/23 History aerosol inhaler cetirizine 10 mg capsule (Zyrtec) 10 mg PO DAILY PRN ALLERGIES 11/20/20 09/16/23 History cholecalciferol (vitamin D3) 50 50 mcg PO DAILY 11/20/20 09/16/23 History mcg (2,000 unit) capsule fesoterodine 4 mg tablet,extended 4 mg PO DAILY 09/16/23 09/16/23 History release 24 hr lisinopril 20 mg tablet 20 mg PO DAILY 09/16/23 09/16/23 History Is last menstrual period known: No Post menopausal: No Patient : No : No PFSH Medical History (Updated 09/16/23 @ 09:[address] Rosalinda Mosley MD) Hypertension Acute pharyngitis, unspecified URI (upper respiratory infection) Depression Diabetes Anemia Fatty liver Back pain Migraine headache Blackout Gastric reflux Non-smoker Shortness of breath on exertion Leg cramps History of edema History of echocardiogram Leaky heart valve Carpal tunnel syndrome Asthma History of depression Surgical History History of tooth extraction Hx laparoscopic cholecystectomy Hx of abdominal hysterectomy Family History Mother Heart disease Diabetes Father Cancer leukemia Social History Smoking Status: Never smoker alcohol intake: never substance use type: does not use caffeine: Yes what type of physical activity do you participate in: walking seatbelt use: always do you feel safe at home: Yes 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 Last PAP: hyst History of abnormal PAP: Last mammogram: 07/2022 History of abnormal mammogram: abnl last year - u/s [facility] Colon cancer screening: up to date Other preventative health care screenings: [facility] - PCP office does screening labs ROS Const Constitutional: Reports as per HPI; Denies fatigue, increased appetite, poor appetite, weight gain or weight loss Cardio Card: Denies chest pain Resp Resp: Denies cough or dyspnea GI GI: Reports as per HPI; Denies abdominal pain, bloating, constipation, nausea or vomiting : Reports as per HPI, vaginal dryness, vaginal pruritus and other; Denies difficulty voiding, dysuria, hematuria, nipple discharge, pelvic pain, prolapse symptoms, urinary frequency, urinary incontinence, urinary urgency, vaginal discharge or vaginal odor Skin Skin/Breast: Denies changing lesions, breast mass, breast pain, breast skin changes or nipple discharge Psych Psych: Denies anxiety or depression Exam Const General: cooperative, healthy appearing, comfortable, no acute distress, well developed and well groomed HENMN Head: normal to inspection and normocephalic Ears: hearing grossly normal bilaterally and external ears normal Nose: external nose normal Face and sinus: normal facial exam Neck Neck: normal visual inspection, full ROM and no lymphadenopathy Thyroid: thyroid normal Chest Chest palpation inspection: normal inspection of the chest Breast inspection: normal inspection of the breasts and normal inspection of the axillae Breast palpation: normal palpation of the breasts, normal palpation of the axillae and no axillary lymphadenopathy Resp Effort Inspection: normal respiratory effort GI Inspection: normal to inspection and non-distended Palpation: soft, no hepatosplenomegaly and no guarding General: bladder normal to palpation External Female Exam: normal external appearance, normal appearance of the urethra and no lesions Urethra: normal appearance of the urethra and normal palpation Speculum Exam - Vagina: normal appearance of the vagina and normal vaginal discha (more content not included)... Normal [facility] Absolute lymphocyte countOrd ered By: Dillon Matthews on 06-01-2023 Lymphocytes Auto (Unsp spec) [#/Vol] 1.09 10*3/uL 0.83-4.51 [facility] Automated lymphocyte count a s percentage of total leukocytesOrdered By: Dillon Matthews on 06-01-2023 Lymphocytes/100 WBC Auto (Unsp spec) 18.2 % 19-41 [facility] Basophil percentageOrdered B y: Dillon Matthews on 06-01-2023 Basophils/100 WBC (Bld) 0.3 % 0-1 [facility] Bilirubin [Mass/Vol] 0.60 mg/dL 0.20-1.00 [facility] Comment on above: For patients on eltr ombopag therapy, use of [facility] TBIL is not recommended. Chloride [Moles/Vol] 103 mmol/L 98-107 [facility] Cholesterol [Mass/Vol] 159 mg/dL <200 [facility] Comment on above: <200 mg/dL Desirable 200-240 mg/dL Borderline >240 mg/dL High Risk Eosinophils/100 WBC (Bld) 3.0 % 0-5 [facility] Glucose [Mass/Vol] 108 mg/dL 74-106 [facility] Comment on above: Fasting Glucose resu lt from 100 to 125 mg/dL suggests IMPAIRED HOMEOSTASIS per A.D.A. criteria. Hemoglobin (Bld) [Mass/Vol] 12.2 g/dL 12.0-15.0 [facility] Monocytes/100 WBC (Bld) 5.8 % 0-10 [facility] Neutrophils (Bld) [#/Vol] 4.3 10*3/uL 2.0-7.7 [facility] Neutrophils/100 WBC (Bld) 72.2 % 47-70 [facility] Potassium [Moles/Vol] 4.2 mmol/L 3.5-5.1 [facility] Protein [Mass/Vol] 6.6 g/dL 6.4-8.2 [facility] Sodium [Moles/Vol] 137 mmol/L 136-145 [facility] Triglyceride [Mass/Vol] 134 mg/dL <199 [facility] Comment on above: The drugs N-Acetylcy steine and Metamizole may falsely depress this assay.Serum Triglycerides Reference Interval Normal <150 mg/dL Borderline high 150 - 199 mg/dL High 200 - 499 mg/dL Very High > or = 500 mg/dL WBC (Bld) [#/Vol] 6.0 10*3/uL 4.4-11.0 [facility] Determination of erythrocyte mean corpuscular volume (MCV)Ordered By: Dillon Matthews on 06-01-2023 MCV (RBC) [Entitic vol] 88.1 fL 81-99 [facility] Erythrocyte distribution wid th ratioOrdered By: Dillon Matthews on 06-01-2023 Erythrocyte distribution width (RBC) [Ratio] 13.1 % 11.6-14.6 [facility] Erythrocyte distribution wid th standard deviationOrdered By: Dillon Matthews on 06-01-2023 Erythrocyte distribution width (RBC) [Entitic vol] 42.0 fL 35.1-43.9 [facility] Hematocrit Auto (Bld) [Volum e fraction]Ordered By: Dillon Matthews on 06-01-2023 Hematocrit (Bld) [Volume fraction] 39.2 % 37-47 [facility] Immature granulocytes/100 WB C Auto (Bld)Ordered By: Dillon Matthews on 06-01-2023 Immature granulocytes/100 WBC (Bld) 0.500 % 0.0-0.9 [facility] Comment on above: IG% - Immature Granu locytes (promyelocytes, myelocytes and metamyelocytes) > 1% indicates that a LEFT SHIFT is Present. Laboratory - Chemistry and C hemistry - challengeOrdered By: Dillon Matthews on 06-01-2023 Albumin/Globulin [Mass ratio] 1.2 {ratio} 0.9-2.4 [facility] ALP [Catalytic activity/Vol] 79 U/L 45-117 [facility] ALT [Catalytic activity/Vol] 59 U/L 13-56 [facility] Cholesterol in HDL [Mass/Vol] 41 mg/dL >40 [facility] Comment on above: The drugs N-Acetylcy steine and Metamizole may falsely depress this assay. Reference Range HDL <40 mg/dL Low HDL Cholesterol HDL >or= 60 mg/dL High HDL Cholesterol Cholesterol in LDL [Mass/Vol] 91 mg/dL 0-130 [facility] CO2 [Moles/Vol] 27.0 mmol/L 21.0-32.0 [facility] Globulin (S) [Mass/Vol] 3.0 g/dL 2.2-4.2 [facility] Urea nitrogen/Creatinine [Mass ratio] 21.3 mg/mg 10-20 [facility] - Hematology and Cell countsOrdered By: Dillon Matthews on 06-01-2023 MCH (RBC) [Entitic mass] 27.4 pg 27.0-32.0 [facility] MCHC (RBC) [Mass/Vol] 31.1 g/dL 32-36 [facility] Nucleated RBC/100 WBC (Bld) [Ratio] 0 % 0-5 [facility] Platelet mean volume (Bld) [Entitic vol] 10.4 fL 6.2-12.0 [facility] Platelets (Bld) [#/Vol] 229 10*3/uL 150-450 [facility] No Panel InformationOrdered By: Dillon Matthews on 06-01-2023 Estimated GFR (MDRD) Amer 132 mL/min >60 [facility] Comment on above: GFR Calc Estimated GFR (MDRD) Non-Af Amer 109 mL/min >60 [facility] Comment on above: Non- GFR Calc Vitamin D 25-Hydroxy 36.5 ng/mL [facility] Comment on above: Vitamin D 25(OH) Sta tus Range Deficiency <20 ng/mL (50nmol/L) Insufficiency 20 - 30 ng/mL (50 - 75 nmol/L) Sufficiency 30 - 100 ng/mL (75 - 250 nmol/L) Toxicity >100 ng/mL (>250 nmol/L) VLDL Cholesterol 27 mg/dL 5-40 [facility] RBC Auto (Bld) [#/Vol]Ordere d By: Dillon Matthews on 06-01-2023 RBC (Bld) [#/Vol] 4.45 10*6/uL 4.2-5.4 [facility] Serum or plasma calcium maggy urement (mass/volume)Ordered By: Dillon Matthews on 06-01-2023 Calcium [Mass/Vol] 9.3 mg/dL 8.5-10.1 [facility] Serum or plasma creatinine m easurement (mass/volume)Ordered By: Dillon Matthews on 06-01-2023 Creatinine [Mass/Vol] 0.61 mg/dL 0.55-1.02 [facility] Comment on above: The validity of the calculated GFR & GFRAA in patients over 70 years has not been determined. Clinical correlation is essential. Serum or plasma urea nitroge n measurement (mass/volume)Ordered By: Dillon Matthews on 06-01-2023 Urea nitrogen [Mass/Vol] 13 mg/dL 7-18 [facility] Thin prep Papanicolaou smear with manual screeningOrdered By: Dillon Matthews on 06-01-2023 Thin prep Papanicolaou smear with manual screening 3.6 g/dL 3.2-5.0 [facility] [facility] Thin prep Papanicolaou smear with manual screening 35 U/L 15-37 [facility] Thin prep Papanicolaou smear with manual screening 7 5-15 [facility] Basic metabolic 1998 panelon 08-11-2022 Anion gap [Moles/Vol] 7 mmol/L 3 - 13 mmol/L [facility] Calcium [Mass/Vol] 9.3 mg/dL 8.4 - 10. 4 mg/dL [facility] Chloride [Moles/Vol] 102 mmol/L 98 - 10 7 mmol/L [facility] CO2 [Moles/Vol] 29 mmol/L 22 - 30 mmol/L [facility] Creatinine [Mass/Vol] 0.53 mg/dL 0.52 - 1.04 mg/dL [facility] GFR/1.73 sq M.predicted MDRD (S/P/Bld) [Vol rate/Area] - PINF [facility] Comment on above: Calculation based on the Chronic Kidney Disease Epidemiology Collaboration (CKD-EPI) equation refit without adjustment for race Glucose [Mass/Vol] 103 mg/dL High 70 - 100 mg/dL [facility] Interpretation and review of laboratory results Abnormal [facility] Potassium [Moles/Vol] 4.2 mmol/L 3.5 - 5.1 mmol/L [facility] Sodium [Moles/Vol] 138 mmol/L 135 - 145 mmol/L [facility] Urea nitrogen [Mass/Vol] 13 mg/dL 7 - 17 mg/d L [facility] CBC W Auto Differential pane l (Bld)Ordered By: Justo Torres on 08-11-2022 Basophils (Bld) [#/Vol] 0.1 10*3/uL 0.0 - 0.2 10*3/uL [facility] Basophils/100 WBC (Bld) 0.9 % 0.0 - 2.0 % [facility] Eosinophils (Bld) [#/Vol] 0.2 10*3/uL 0.0 - 0.5 10*3/uL [facility] Eosinophils/100 WBC (Bld) 1.6 % 1.0 - 6.0 % [facility] Erythrocyte distribution width (RBC) [Ratio] 13.8 % 11.5 - 14.5 % [facility] Hematocrit (Bld) [Volume fraction] 39.2 % 35.0 - 47.0 % [facility] Hemoglobin (Bld) [Mass/Vol] 13.2 g/dL 11.7 - 16.0 g/dL [facility] Interpretation and review of laboratory results Abnormal [facility] Lymphocytes (Bld) [#/Vol] 1.1 10*3/uL 1.0 - 4.3 10*3/uL [facility] Lymphocytes/100 WBC (Bld) 11.9 % Low 20.0 - 40.0 % [facility] MCH (RBC) [Entitic mass] 27.2 pg 26. 0 - 34.0 pg [facility] MCHC (RBC) [Mass/Vol] 33.8 % 32.0 - 36.0 % [facility] MCV (RBC) [Entitic vol] 80.5 fL 80.0 - 98.0 fL [facility] Monocytes (Bld) [#/Vol] 0.6 10*3/uL 0.0 - 0.8 10*3/uL [facility] Monocytes/100 WBC (Bld) 5.9 % 2.0 - 10.0 % [facility] Neutrophils (Bld) [#/Vol] 7.5 10*3/uL High 1.8 - 7.0 10*3/uL [facility] Neutrophils/100 WBC (Bld) 79.7 % 40.0 - 80.0 % [facility] Nucleated RBC/100 WBC (Bld) [Ratio] 0.0 % [facility] Platelet mean volume (Bld) [Entitic vol] 7.7 fL 7.4 - 12.4 fL [facility] Platelets (Bld) [#/Vol] 240 10*3/uL 140 - 440 10*3/uL [facility] RBC (Bld) [#/Vol] 4.87 10*6/uL 3.8 - 5.20 10*6/uL [facility] WBC (Bld) [#/Vol] 9.4 10*3/uL 3.6 - 10.7 10*3/uL [facility] ECG 12-LEADon 08-11-2022 ECG 12-LEAD IMPRESSION: SINUS RHYTHM EARLY PRECORDIAL R/S TRANSITION No previous ECG available for comparison Electronically Signed On 08-11-2022 15:51:51 EDT by Cirilo Briseno Normal [facility] ED Nursing Noteon 08-11-2022 ED Nursing Note Pt c/o dizziness wit h nausea that began this weekend while sitting. Normal [facility] ED Provider Noteon ED Provider Note Emergency Department Encounter [facility] ED Patient: Aminata Barber : 1970 Date of Evaluation: 08/11/2022 I independently examined and evaluated Aminata Barber. This will serve as my Supervisory note and shared attestation. I performed a substantive portion of the visit including all aspects of the Medical Decision Making. In brief: 52-year-old female presents to the emergency department for evaluation of lightheadedness (as opposed to vertigo) at rest and with activity over the last 2 days. According to the records from [facility], patient's PMH includes anemia, asthma, diabetes, depression, migraine Focused exam: Constitutional: Well-developed and well-nourished. No distress. Neck: No nuchal rigidity. Cardiovascular: Normal rate, regular rhythm. No abnormal heart sounds heard. Pulmonary/Chest: Effort normal with no conversational dyspnea. Clear to auscultation bilaterally. Abdominal: Soft. No distension, tenderness, or guarding. No CVAT Musculoskeletal: No edema and no calf tenderness to palpation. Neuro: Normal gait Skin: Skin is warm and dry. Psychiatric: Normal mood and affect. Brief ED course/MDM: The patient presented with a chief complaint of lightheadedness. The differential diagnosis associated with this patient's presentation includes anemia, infection, electrolyte abnormality, arrhythmia. Our workup consisted of ordering/reviewing ECG read below, chest x-ray read below, CBC, BMP, UA and troponin. Diagnostic tests considered but not performed: d-dimer; I doubt PE Diagnostics interpreted by me: ECG(s) sinus rhythm 70 bpm with normal QTc of [address] or T wave changes suggestive of acute ischemia. No evidence of WPW. Early precordial RS transition. Xray(s) I reviewed the CXR imaging and noted no evidence of focal consolidation, pneumothorax, pleural effusion, or acutely widened mediastinum. I reviewed the radiologist's read which showed no acute process. Diagnoses as of 08/11/222004 Weakness I made all diagnostic, treatment, and disposition decisions in conjunction with the resident. I also supervised kinney portions of any procedures performed by the resident. For all further details of the patient's emergency department visit, please see his/her documentation. MD Cirilo Sutherland MD 08/11/22[address] [facility] ED Provider Note EMERGENCY DEPARTMENT ENCOUNTER Pt Name: Aminata Barber Birthdate 1970 Date of evaluation: 08/11/2022 ED Provider: Love Garcia DO CHIEF COMPLAINT Chief Complaint Patient presents with Dizziness HISTORY OF PRESENT ILLNESS (Location/Symptom, Timing/Onset, Context/Setting, Quality, Duration, Modifying Factors, Severity) Note limiting factors. I wore appropriate PPE for the entirety of this encounter. HPI Aminata Barber is a 52 y.o. adult who presents to the emergency department with chief complaint of intermittent episodes of lightheadedness that has been going on for few days. She denies a room spinning sensation. Denies any other associated symptoms with this. No fevers no recent long travels no new medications no previous history of this has been eating and drinking appropriately no recent trauma Nursing Notes were reviewed. Limitations to history: None Outside historians: None REVIEW OF SYSTEMS Review of Systems Constitutional: Negative for chills and fever. HENT: Negative for ear pain and sore throat. Eyes: Negative for pain and visual disturbance. Respiratory: Negative for cough and shortness of breath. Cardiovascular: Negative for chest pain and palpitations. Gastrointestinal: Negative for abdominal pain and vomiting. Genitourinary: Negative for dysuria and hematuria. Musculoskeletal: Negative for arthralgias and back pain. Skin: Negative for color change and rash. Neurological: Positive for light-headedness. Negative for dizziness, tremors, seizures, syncope, facial asymmetry, speech difficulty, weakness, numbness and headaches. All other systems reviewed and are negative. Pertinent positives and negatives as per HPI. PAST MEDICAL HISTORY No past medical history on file. SURGICAL HISTORY No past surgical history on file. CURRENT MEDICATIONS There are no discharge medications for this patient. ALLERGIES Patient has no known allergies. FAMILY HISTORY No family history on file. SOCIAL HISTORY Social History Socioeconomic History Marital status: SCREENINGS Monalisa Coma Scale Best Eye Response: Spontaneous Best Verbal Response: Oriented Best Motor Response: Follows commands [place] Coma Scale Score: 15 PHYSICAL EXAM ED Triage Vitals [08/11/22 1439] Temp Heart Rate Resp BP 36.1 ?C (97 ?F) 78 18 (!) 181/81 SpO2 Temp Source Heart Rate Source Patient Position 98 % Temporal Monitor -- BP Location FiO2 (%) -- -- Physical Exam BP (!) 181/81 Pulse 78 Temp 36.1 ?C (97 ?F) (Temporal) Resp 18 Wt 120 kg (265 lb) SpO2 98% Constitutional: Alert, awake HENT: mucous membranes moist Eyes: no discharge, nonicteric Neck: neck supple, trachea midline Lungs: CTABL, no wheezing, no rales Heart: RRR , no murmurs, equal distal pulses to extremities, no peripheral edema/erythema/warmth of LEs b/l Vascular: radial 2/4 equal B/L, dp 2/4 equal B/L Abdomen: Soft, nontender, ND, no masses, no rebound/guarding, no peritoneal signs and +bs Extremities: normal peripheral perfusion Neuro: Alert and oriented, normal speech, GOMEZ, ambulates Skin: warm and dry Psych: cooperative, appropriate thought content and judgement DIAGNOSTIC RESULTS Procedures/EKG: EKG was reviewed by myself. Physician EKG interpretation can be found in [facility] RADIOLOGY (Per Emergency Physician): Interpretation per the Radiologist below, if available at the time of this note: XR chest 1 view Final Result Lungs clear with no acute cardiopulmonary disease process Report Dictated on Electronically Signed By: Pierce Oliveros Electronically Signed Date/Time: 08/11/2022 4:45 PM EDT ED BEDSIDE ULTRASOUND: Performed by ED Physician - none LABS: Labs Reviewed CBC WITH AUTO DIFFERENTIAL - Abnormal Result Value Auto WBC 9.4 RBC 4.87 Hemoglobin 13.2 Hematocrit 39.2 MCV 80.5 MCH 27.2 MCHC 33.8 RDW 13.8 Platelets 240 MPV 7.7 nRBC 0.0 Neutrophils Relative 79.7 Lymphocytes Relative 11.9 (*) Monocytes Relative 5.9 Eosinophils Relative 1.6 Basophils Relative 0.9 Neutrophils Absolute 7.5 (*) Lymphocytes Absolute 1.1 Monocytes Absolute 0.6 Eosinophils Absolute 0.2 Basophils Absolute 0.1 BASIC METABOLIC PANEL - Abnormal SODIUM 138 POTASSIUM 4.2 CHLORIDE 102 CARBON DIOXIDE 29 UREA NITROGEN 13 CREATININE 0.53 GLUCOSE 103 (*) CALCIUM 9.3 ANION GAP 7 eGFR >90.0 POCT GLUCOSE METER UNSOLICITED RESULTS - Abnormal Glucose 173 (*) Narrative: Performed by: Davey Farmer, [address] [place] [id number] CLIA ID: [id number] TROPONIN I - Normal TROPONIN I <0.012 Narrative: Patients with high levels of Biotin oral intake (ie >5 mg/day) may have falsely decreased Troponin levels. COMPLETE URINALYSIS - Normal Color, Urine Light Yellow Clarity, Urine Clear pH, Urine 6.5 Leukocytes, Urine Negative Nitrite, Urine Negative Protein, Urine (more content not included)... Normal [facility] Laboratory - Chemistry and C hemistry - challengeon 08-11-2022 Troponin I.cardiac [Mass/Vol] ng/mL 0.000 - 0.034 ng/mL [facility] Glucose [Mass/Vol] 173 mg/dL [facility] No Panel Informationon 08-11 P [place] 54 degrees [facility] MA Interval 136 ms [facility] QRS [place] 19 degrees [facility] QRSD [facility]val [facility]val 404 ms [facility] QTC Interval 436 ms [facility] T Wave [place] 58 degrees [facility] SINUS RHYTHM EARLY PRECORDIAL R/S TRANSITION No previous ECG available for comparison Electronically Signed On 08-11-2022 15:51:51 EDT by Cirilo Briseno CV Cirilo Mac MD - 08/11/2022 IMPRESSION: SINUS RHYTHM EARLY PRECORDIAL R/S TRANSITION No previous ECG available for comparison Electronically Signed On 08-11-2022 15:51:51 EDT by Cirilo Briseno [facility] Interpretation and review of laboratory results Abnormal [facility] Performed by: [facility], [address] [place] [address] CLIA ID: [id number] [facility] Interpretation and review of laboratory results Normal [facility] Troponin I.cardiac [Mass/Vol ]on 08-11-2022 Interpretation and review of laboratory results Normal [facility] Patients with high levels of Biotin oral intake (ie >5 mg/day) may have falsely decreased Troponin levels. [facility] Urinalysis complete panel (U )on 08-11-2022 Bilirubin Ql (U) Negative Negative mg/dL [facility] Clarity (U) Clear Clear [facility] Color (U) Light Yellow Lt. Yellow [facility] Glucose Ql (U) Normal Normal (<70) mg/dL [facility] Hemoglobin Ql (U) Negative Negative mg/dL [facility] Interpretation and review of laboratory results Normal [facility] Ketones (U) [Mass/Vol] Negative Negat clary mg/dL [facility] Leukocyte esterase Test strip Ql (U) Negative Negative [place]/uL [facility] Nitrite Ql (U) Negative Negative [facility] pH (U) 6.5 [pH] 5.0 - 8.0 pH [facility] Protein (U) [Mass/Vol] Negative Negat clary mg/dL [facility] Specific gravity (U) [Rel density] 1.012 1.005 - 1.030 [facility] Urobilinogen (U) [Mass/Vol] Normal Normal (0-1) mg/dL [facility] Vital signson 08-11-2022 Heart rate 70 /min bpm [facility] XR Chest Single viewon 08-11 Lungs clear with no acute cardiopulmonary disease process Report Dictated on Electronically Signed By: Pierce Oliveros Electronically Signed Date/Time: 08/11/2022 4:45 PM EDT [facility] Patient Name: AMINATA BARBER : 1970 Exam Date/Time: 08/11/2022 16:34 Procedure: XR CHEST 1 VIEW Ordering Provider: BRISENO ANIS Reason For Exam: weakness CLINICAL INDICATION: weakness COMPARISON: None TECHNIQUE: Single portable AP radiograph of the chest. FINDINGS: LUNGS/PLEURA:Clear with no acute infiltrate or effusion. No pneumothorax. The trachea is midline. MEDIASTINUM:Heart size and mediastinal contours are normal. VASCULARITY: Normal BONES:Unremarkable [facility] Melissa Oliveros MD - 08/11/2022 Patient Name: AMINATA BARBER : 1970 Exam Date/Time: 08/11/2022 16:34 Procedure: XR CHEST 1 VIEW Ordering Provider: BRISENO ANIS Reason For Exam: weakness CLINICAL INDICATION: weakness COMPARISON: None TECHNIQUE: Single portable AP radiograph of the chest. FINDINGS: LUNGS/PLEURA:Clear with no acute infiltrate or effusion. No pneumothorax. The trachea is midline. MEDIASTINUM:Heart size and mediastinal contours are normal. VASCULARITY: Normal BONES:Unremarkable IMPRESSION: Lungs clear with no acute cardiopulmonary disease process Report Dictated on Electronically Signed By: Pierce Oliveros Electronically Signed Date/Time: 08/11/2022 4:45 PM EDT [facility] Radiology Study observation (narrative) Davey Matthews alth XR Chest Single viewOrdered By: Melissa Oliveros on 08-11-2022 [employer] Work Phone: Absolute lymphocyte countOrd ered By: Carmen Hill on 06-17-2022 Lymphocytes Auto (Unsp spec) [#/Vol] 0.93 10*3/uL 0.83-4.51 [facility] Basophil percentageOrdered B y: Carmen Hill on 06-17-2022 Basophils/100 WBC (Bld) 0.3 % 0-1 [facility] Bilirubin [Mass/Vol] 0.50 mg/dL 0.20-1.00 [facility] Comment on above: For patients on eltr ombopag therapy, use of [facility] TBIL is not recommended. Chloride [Moles/Vol] 105 mmol/L 98-107 [facility] Cholesterol [Mass/Vol] 151 mg/dL <200 [facility] Comment on above: <200 mg/dL Desirable 200-240 mg/dL Borderline >240 mg/dL High Risk Eosinophils/100 WBC (Bld) 3.8 % 0-5 [facility] Glucose [Mass/Vol] 110 mg/dL 74-106 [facility] Comment on above: Fasting Glucose resu lt from 100 to 125 mg/dL suggests IMPAIRED HOMEOSTASIS per A.D.A. criteria. Neutrophils (Bld) [#/Vol] 4.3 10*3/uL 2.0-7.7 [facility] Neutrophils/100 WBC (Bld) 73.9 % 47-70 [facility] Potassium [Moles/Vol] 4.6 mmol/L 3.5-5.1 [facility] Protein [Mass/Vol] 7.6 g/dL 6.4-8.2 [facility] Sodium [Moles/Vol] 137 mmol/L 136-145 [facility] Triglyceride [Mass/Vol] 101 mg/dL <199 [facility] Comment on above: The drugs N-Acetylcy steine and Metamizole may falsely depress this assay.Serum Triglycerides Reference Interval Normal <150 mg/dL Borderline high 150 - 199 mg/dL High 200 - 499 mg/dL Very High > or = 500 mg/dL WBC (Bld) [#/Vol] 5.9 10*3/uL 4.4-11.0 [facility] Blood erythrocytes count (nu mber/volume)Ordered By: Carmen Hill on 06-17-2022 RBC (Bld) [#/Vol] 4.65 10*6/uL 4.2-5.4 [facility] Blood hemoglobin measurement (mass/volume)Ordered By: Carmen Hill on 06-17-2022 Hemoglobin (Bld) [Mass/Vol] 12.6 g/dL 12.0-15.0 [facility] Blood lymphocytes/100 leukoc ytesOrdered By: Carmenkatiuska Hill on 06-17-2022 Lymphocytes/100 WBC (Bld) 15.9 % 19-41 [facility] Blood monocytes/100 leukocyt esOrdered By: Decker Sergio on 06-17-2022 Monocytes/100 WBC (Bld) 5.8 % 0-10 [facility] Blood platelet mean volumeOr dered By: Carmenkatiuska Hill on 06-17-2022 Platelet mean volume (Bld) [Entitic vol] 10.5 fL 6.2-12.0 [facility] Determination of erythrocyte mean corpuscular volume (MCV)Ordered By: Carmenkatiuska Hill on 06-17-2022 MCV (RBC) [Entitic vol] 88.4 fL 81-99 [facility] Hematocrit Auto (Bld) [Volum e fraction]Ordered By: Carmenkatiuska Hill on 06-17-2022 Hematocrit (Bld) [Volume fraction] 41.1 % 37-47 [facility] Laboratory - Chemistry and C hemistry - challengeOrdered By: Decker Sergio on 06-17-2022 ALP [Catalytic activity/Vol] 90 U/L 45-117 [facility] ALT [Catalytic activity/Vol] 36 U/L 13-56 [facility] CO2 [Moles/Vol] 28.0 mmol/L 21.0-32.0 [facility] Cobalamin (Vitamin B12) [Mass/Vol] 1478 pg/mL 211-911 [facility] Globulin (S) [Mass/Vol] 4.2 g/dL 2.2-4.2 [facility] Urea nitrogen/Creatinine [Mass ratio] 14.2 mg/mg 10-20 [facility] Laboratory - Hematology and Cell countsOrdered By: Carmen Hill on 06-17-2022 Erythrocyte distribution width (RBC) [Entitic vol] 43.5 fL 35.1-43.9 [facility] Erythrocyte distribution width (RBC) [Ratio] 13.4 % 11.6-14.6 [facility] Immature granulocytes/100 WBC (Bld) 0.300 % 0.0-0.9 [facility] Comment on above: IG% - Immature Granu locytes (promyelocytes, myelocytes and metamyelocytes) > 1% indicates that a LEFT SHIFT is Present. MCH (RBC) [Entitic mass] 27.1 pg 27.0-32.0 [facility] Nucleated RBC/100 WBC (Bld) [Ratio] 0 % 0-5 [facility] MCHC Auto (RBC) [Mass/Vol]Or dered By: Carmen Hill on 06-17-2022 MCHC (RBC) [Mass/Vol] 30.7 g/dL 32-36 [facility] No Panel InformationOrdered By: Carmen Hill on 06-17-2022 Estimated GFR (MDRD) Amer 112 mL/min >60 [facility] Comment on above: GFR Calc Estimated GFR (MDRD) Non-Af Amer 93 mL/min >60 [facility] Comment on above: Non- GFR Calc Thyroid Stimulating Hormone (TSH) 1.74 uIU/mL 0.358-3.74 [facility] Vitamin D 25-Hydroxy 38.6 ng/mL [facility] Comment on above: Vitamin D 25(OH) Sta tus Range Deficiency <20 ng/mL (50nmol/L) Insufficiency 20 - 30 ng/mL (50 - 75 nmol/L) Sufficiency 30 - 100 ng/mL (75 - 250 nmol/L) Toxicity >100 ng/mL (>250 nmol/L) Platelets bldOrdered By: Adolfo Hill on 06-17-2022 Platelets (Bld) [#/Vol] 239 10*3/uL 150-450 [facility] Serum or plasma albumin maggy urement (mass/volume)Ordered By: Carmen Hill on 06-17-2022 Albumin [Mass/Vol] 3.4 g/dL 3.2-5.0 [facility] Serum or plasma albumin/glob ulin mass ratioOrdered By: Carmen Hill on 06-17-2022 Albumin/Globulin [Mass ratio] 0.8 {ratio} 0.9-2.4 [facility] Serum or plasma calcium maggy urement (mass/volume)Ordered By: Carmen Hill on 06-17-2022 Calcium [Mass/Vol] 8.8 mg/dL 8.5-10.1 [facility] Serum or plasma cholesterol in HDL measurement (mass/volume)Ordered By: Carmen Hill on 06-17-2022 Cholesterol in HDL [Mass/Vol] 45 mg/dL >40 [facility] Comment on above: The drugs N-Acetylcy steine and Metamizole may falsely depress this assay. Reference Range HDL <40 mg/dL Low HDL Cholesterol HDL >or= 60 mg/dL High HDL Cholesterol Serum or plasma cholesterol in VLDL measurement (mass/volume)Ordered By: Carmen Hill on 06-17-2022 Cholesterol in VLDL [Mass/Vol] 20 mg/dL 5-40 [facility] Serum or plasma creatinine m easurement (mass/volume)Ordered By: Carmen Hill 06-17-2022 Creatinine [Mass/Vol] 0.70 mg/dL 0.55-1.02 [facility] Comment on above: The validity of the calculated GFR & GFRAA in patients over 70 years has not been determined. Clinical correlation is essential. Serum or plasma low density lipoprotein (LDL) cholesterol measurement (mass/volume)Ordered By: Carmen Hill on 06-17-2022 Cholesterol in LDL [Mass/Vol] 86 mg/dL 0-130 [facility] Serum or plasma urea nitroge n measurement (mass/volume)Ordered By: Carmen Hill 06-17-2022 Urea nitrogen [Mass/Vol] 10 mg/dL 7-18 [facility] Thin prep Papanicolaou smear with manual screeningOrdered By: Carmen Hill 06-17-2022 Thin prep Papanicolaou smear with manual screening 18 U/L 15-37 [facility] Thin prep Papanicolaou smear with manual screening 4 5-15 [facility] Vital Signs Date Time Vital Sign Value Performing Clinician Kimberly templeton 07-21-2024 07:35-0400 Body temperature 98.4 [degF] Carmen Sergio REFERENCE DATA EXPERT-C Work Phone: [facility] 07-21-2024 07:35-0400 Diastolic blood pressure 76 mm[Hg] Carmen Sergio REFERENCE DATA EXPERT-C Work Phone: [facility] 07-21-2024 07:35-0400 Heart rate 74 /min Carmen Sergio REFERENCE DATA EXPERT-C Work Phone: [facility] 07-21-2024 07:35-0400 Respiratory rate 16 /min Carmen Sergio REFERENCE DATA EXPERT-C Work Phone: [facility] 07-21-2024 07:35-0400 SaO2% (BldA) [Mass fraction] 97 % Carmen Sergio REFERENCE DATA EXPERT-C Work Phone: [facility] 07-21-2024 07:35-0400 Systolic blood pressure 134 mm[Hg] Carmen Sergio REFERENCE DATA EXPERT-C Work Phone: [facility] 08-11-2022 14:39-0400 Body temperature 97 [degF] Cirilo Briseno MD Work Phone: [facility] 08-11-2022 14:39-0400 Body weight 120.2 kg Cirilo Briseno MD Work Phone: [facility] 08-11-2022 14:39-0400 Diastolic blood pressure 81 mm[Hg] Cirilo Briseno MD Work Phone: [facility] 08-11-2022 14:39-0400 Heart rate 78 /min Cirilo Briseno MD Work Phone: [facility] 08-11-2022 14:39-0400 Respiratory rate 18 /min Cirilo Briseno MD Work Phone: [facility] 08-11-2022 14:39-0400 SaO2% (BldA) [Mass fraction] 98 % Cirilo Briseno MD Work Phone: [facility] 08-11-2022 14:39-0400 Systolic blood pressure 181 mm[Hg] Cirilo Briseno MD Work Phone: [facility] 07-15-2022 08:19-0400 Body height 154.[address] Nani Oliveira Work Phone: [facility] 07-15-2022 08:19-0400 Body mass index (BMI) [Ratio] 51 kg/m2 Dr. Nani Oliveira Work Phone: [facility] 07-15-2022 08:19-0400 Body weight 122.[address] Nani Oliveira Work Phone: [facility] 07-15-2022 08:19-0400 Diastolic blood pressure 83 mm[Hg] Dr. Nani Oliveira Work Phone: [facility] 07-15-2022 08:19-0400 Systolic blood pressure 136 mm[Hg] Dr. Nani Oliveira Work Phone: [facility] 05-28-2022 09:37-0400 Body temperature 98.2 [degF] Dr. Nani Oliveira Work Phone: [facility] 05-28-2022 09:37-0400 Diastolic blood pressure 90 mm[Hg] Dr. Nani Oliveira Work Phone: [facility] 05-28-2022 09:37-0400 Heart rate 78 /min Dr. Nani Oliveira Work Phone: [facility] 05-28-2022 09:37-0400 Respiratory rate 16 /min Dr. Nani Oliveira Work Phone: [facility] 05-28-2022 09:37-0400 SaO2% (BldA) [Mass fraction] 98 % Dr. Nani Oliveira Work Phone: [facility] 05-28-2022 09:37-0400 Systolic blood pressure 138 mm[Hg] Dr. Nani Oliveira Work Phone: [facility] 04-14-2022 10:16-0500 Body temperature 97.8 [degF] Dr. Nani Oliveira Work Phone: [facility] 04-14-2022 10:16-0500 Diastolic blood pressure 66 mm[Hg] Dr. Nani Oliveira Work Phone: [facility] 04-14-2022 10:16-0500 Heart rate 70 /min Dr. Nani Oliveira Work Phone: [facility] 04-14-2022 10:16-0500 Respiratory rate 16 /min Dr. Nani Oliveira Work Phone: [facility] 04-14-2022 10:16-0500 SaO2% (BldA) [Mass fraction] 98 % Dr. Nani Oliveira Work Phone: [facility] 04-14-2022 10:16-0500 Systolic blood pressure 118 mm[Hg] Dr. Nani Oliveira Work Phone: [facility] 09-12-2021 11:15-0400 Body temperature 98 [degF] Dr. Nani Oliveira Work Phone: [facility] Work Phone: 09-12-2021 11:15-0400 Diastolic blood pressure 67 mm[Hg] Dr. Nani Oliveira Work Phone: [facility] Work Phone: 09-12-2021 11:15-0400 Heart rate 55 /min Dr. Nani Oliveira Work Phone: [facility] Work Phone: 09-12-2021 11:15-0400 Respiratory rate 18 /min Dr. Nani Oliveira Work Phone: [facility] Work Phone: 09-12-2021 11:15-0400 SaO2% (BldA) [Mass fraction] 100 % Dr. Nani Oliveira Work Phone: [facility] Work Phone: 09-12-2021 11:15-0400 Systolic blood pressure 113 mm[Hg] Dr. Nani Oliveira Work Phone: [facility] Work Phone: 09-12-2021 09:39-0400 Body height 154.[address] Nani Oliveira Work Phone: [facility] Work Phone: 09-12-2021 09:39-0400 Body mass index (BMI) [Ratio] 50.8 kg/m2 Dr. Nani Oliveira Work Phone: [facility] Work Phone: 09-12-2021 09:39-0400 Body weight [address] Nani Oliveira Work Phone: [facility] Work Phone: 06-12-2021 10:39-0400 Body mass index (BMI) [Ratio] 50.8 kg/m2 Dr. Nani Oliveira Work Phone: [facility] Work Phone: 06-12-2021 10:39-0400 Body weight 122.[address] Nani Oliveira Work Phone: [facility] Work Phone: Encounters Encounter Date Encounter Type Care Provider Facility Start: 09-02-2024 ambulatory [facility] Facility: [facility] Start: 08-15-2024 Encounter for genera l adult medical examination with abnormal findings Carmen Hill [facility] Start: 08-09-2024 End: 08-09-2024 ambulatory Carmen Hill REFERENCE DATA EXPERT-C Work Phone: [facility] Work Phone: Start: 08-09-2024 End: 08-09-2024 Patient encounter procedure Carmen Hill REFERENCE DATA EXPERT-C -Laboratory [facility] Work Phone: Start: 08-09-2024 End: 08-09-2024 ambulatory Carmen Hill Facility:[facility] Start: 07-21-2024 End: 07-21-2024 Patient encounter procedure Leobardo Hdez [facility] Work Phone: Start: 07-21-2024 End: 07-21-2024 ambulatory Carmen Hill REFERENCE DATA EXPERT-C Work Phone: [facility] Work Phone: Start: 09-30-2023 End: 09-30-2023 ambulatory Carmen Hill Facility:[facility] Start: 09-16-2023 End: 09-16-2023 ambulatory Carmen Reyesgar Facility:[facility] Start: 09-16-2023 End: 09-16-2023 ambulatory Rosalindazackary Sterlingjonathanmarsha Facility:[facility] Start: 06-01-2023 End: 06-01-2023 ambulatory [facility] Work Phone: Start: 06-01-2023 End: 06-01-2023 Patient encounter procedure [facility] Start: 08-11-2022 End: 08-11-2022 Emergency department patient visit NANI [facility] Start: 08-11-2022 End: 08-11-2022 Emergency department patient visit Cirilo Briseno MD Work Phone: [facility] ED Comment on above: Weakness (Primary Dx ) Start: 08-11-2022 End: 08-11-2022 Subsequent hospital visit by physician [facility] Non-Invasive Cardiology Comment on above: Arrived Start: 07-25-2022 End: 07-25-[address] Nani Oliveira Work Phone: [facility] Work Phone: Start: 07-25-2022 End: 07-25-[address] Nani Oliveira Work Phone: [facility]-Outpatient Breast Imaging Start: 07-16-[address] Nani Oliveira Work Phone: [facility]-Physical Therapy Start: 07-15-2022 End: 07-15-[address] Nani Oliveira Work Phone: [facility] Start: 06-20-[address] Nani Oliveira Work Phone: [facility]-Physical Therapy Start: 06-17-2022 End: 06-17-[address] Nani Oliveira Work Phone: [facility] Work Phone: Start: 06-17-2022 End: 06-17-[address] Nani Oliveira Work Phone: [facility]-Laboratory, [facility] Start: 05-28-2022 End: 05-28-[address] Nani Oliveira Work Phone: [facility] Start: 04-14-2022 End: 04-14-[address] Nani Oliveira Work Phone: [facility] Start: 09-24-2021 End: 09-24-[address] Nani Oliveira Work Phone: [facility]-Outpatient Breast Imaging Start: 09-12-2021 Non-patient / Non-visit Dr. Jaime Oliveira Work Phone: [facility] Start: 09-12-2021 End: 09-12-2021 Admission to same day surgery center Dr. Nani Oliveira Work Phone: [facility]-Endoscopy Start: 06-12-2021 Non-patient / Non-visit Dr. Jaime Oliveira Work Phone: [facility] Start: 07-02-2017 Ambulatory Reji Mariscal [facility] Start: 06-30-2017 Ambulatory Reji Tex Mariscal [facility] Procedures Date Procedure Procedure Detail Performing Clinician Start: 08-09-2024 Vitamin D, 25-hydrox y measurement Carmen Hill NP-C Work Phone: Comment on above: Vitamin D StatusDefi ciency: <20 ng/mL (50nmol/L)Insufficiency: 20-30 ng/mL (50-75 nmol/L)Sufficiency: 30-100 ng/mL (75-250 nmol/L)Toxicity: >100 ng/mL (>250 nmol/L) Start: 06-01-2023 Plain X-ray of shoulder Start: 06-01-2023 X-ray of cervical spine Start: 08-11-2022 Urnls dip stick/tabl et rgnt auto w/o microscopy Love Garcia DO Work Phone: Start: 08-11-2022 Basic metabolic pane l calcium total Love Garcia DO Work Phone: Start: 08-11-2022 Radiologic exam ches t single view Love Garcia DO Work Phone: Start: 08-11-2022 Ecg routine ecg w/le ast 12 lds trcg only w/o i&r Cirilo Briseno MD Work Phone: Start: 08-11-2022 POCT GLUCOSE METER Cirilo Briseno MD Work Phone: Start: 08-11-2022 Glucose quantitative blood xcpt reagent strip Cirilo Briseno MD Work Phone: Start: 07-25-2022 End: 07-25-[address] Nani Oliveira Work Phone: Start: 07-25-[address] Nani Oliveira Work Phone: Start: 09-24-2021 Screening mammography Naida Oliveira Work Phone: Start: 09-12-2021 End: 09-12-[address] Nani Oliveira Work Phone: Plan of Treatment Date Care Activity Detail Author Start: 09-13-2031 Screening for malign ant neoplasm of colon [facility] Start: 07-26-2023 Screening for malign ant neoplasm of breast Mammogram [facility] Start: 10-24-2022 Influenza vaccination Influenz a Vaccine ([facility] Start: 09-12-2021 [place] [facility] [place] Phone: Start: 2020 Zoster Vaccines (1 of 2) Zoste r Vaccines (1 of 2) [facility] Start: 1989 DTaP/Tdap/Td Vaccine s (1 - Tdap) DTaP/Tdap/Td Vaccines (1 - Tdap) [facility] Start: 1988 Diabetes mellitus screening Diabetes Screening [facility] Start: 1988 Hepatitis C screening Hepatitis C Sc reening [facility] Start: 1982 Depression Screening Depression Scre ening [facility] Start: 08-06-1971 MMR Vaccines (1 of 1 - Standard series) MMR Vaccines (1 of 1 - Standard series) [facility] Start: 02-04-1971 COVID-19 Vaccine (#1) COVID-19 Vacci ne (#1) [facility] Start: 1970 Hepatitis B Vaccines (1 of 3 - 3-dose series) Hepatitis B Vaccines (1 of 3 - 3-dose series) [facility] Start: 1970 HIV screening HIV Screening [facility] Start: 1970 Lipid panel Lipid Panel [facility] Start: 1970 Screening for malign ant neoplasm of colon [facility] Colonoscopy [facility] Work Phone: Patient referral [facility] Work Phone: Immunizations Immunization Date Immunization Notes Care Provider Fa joannty 07-21-2024 tetanus toxoid, redu shonna diphtheria toxoid, and acellular pertussis vaccine, adsorbed Carmen Hill REFERENCE DATA EXPERT-C Work Phone: [facility] Payers Date Payer Category Payer Self-pay 2023 Unknown [id number] Private Health Insurance Private Health Insurance [id number] Unknown [id number] Unknown [id number] Unknown [id number] Unknown [id number] [id number] Unknown [id number] Unknown [id number] [id number] Unknown [id number] [id number] Unknown [id number] Social History Date Type Detail Facility [facility] Work Phone: Start: 09-10-2021 End: 07-15-2022 Tobacco smoking status NHIS Unknown if ever smoked [facility] Start: 1970 Sex Assigned At Female [facility] Start: 1970 Sex Assigned At Not on file [facility] Start: 08-11-2022 Gender identity Not on file [facility] Start: 08-01-2022 End: 08-11-2022 Exposure to SARS-CoV-2 (event) Not sure [facility] Start: 08-11-2022 History of Social function [facility] How often to you hav e a drink containing alcohol? Never [facility] How many standard dr inks containing alcohol do you have on a typical day? Patient does not drink [facility] Start: 07-15-2022 Tobacco smoking stat us NHIS Never smoked tobacco (finding) [facility] Goals Date Patient Goal Desired Activity /State Mental Status Date Assessment Result Facility 09-12-2021 Cognitive function Voice/Name [facility] Work Phone: Clinical Notes 08-11-2022 to 07-21-2024 Note Date & Type Note Facility 07-21-2024 Evaluation note Diagnosis Onset Date Resolution Cat bite of forearm acute June 242024 7:29am [facility] Work Phone: 1(669) 683-320506-19-2023 Hospital Discharge instructions* Discharge Instructions* Love Garcia, - 08/11/2022 6:00 PM EDT Please see your primary care doctor. Return to the ED if any concerning symptoms arise. * Attachments The following attachments cannot be sent through Care Everywhere. * Generalized Weakness (Kosovan) * Fatigue Discharge Instructions ([place]ovan) * Generalized Weakness Discharge Instructions (Kosovan) documented in this [facility]06[facility]2023 Emergency department Note* Cirilo Briseno MD - 08/11/2022 2:32 PM EDT Emergency Department Encounter [facility] ED Patient: Aminata Barber : 1970 Date of Evaluation: 08/11/2022 I independently examined and evaluated Aminata Barber. This will serve as my Supervisory note and shared attestation. I performed a substantive portion ofthe visit including all aspects of the Medical Decision Making. In brief: 52-year-old female presents to the emergency department for evaluation of lightheadedness(as opposed to vertigo) at rest and with activity over the last 2 days. According to the records from [facility], patient's PMH includes anemia, asthma, diabetes, depression, migraine Focused exam: Constitutional: Well-developed and well-nourished. No distress. Neck: No nuchal rigidity. Cardiovascular: Normal rate, regular rhythm. No abnormal heart sounds heard. Pulmonary/Chest: Effort normal with no conversational dyspnea. Clear to auscultation bilaterally. Abdominal: Soft. No distension, tenderness, or guarding. No CVAT Musculoskeletal: No edema and no calf tenderness to palpation. Neuro: Normal gait Skin: Skin is warm and dry. Psychiatric: Normal mood and affect. Brief ED course/MDM: The patient presented with a chief complaint of lightheadedness. The differential diagnosis associated with this patient's presentation includes anemia, infection, electrolyte abnormality, arrhythmia. Our workup consisted of ordering/reviewing ECG read below, chest x-ray read below, CBC, BMP, UA and troponin. Diagnostic tests considered but not performed: d-dimer; I doubt PE Diagnostics interpreted by me: ECG(s) sinus rhythm 70 bpm with normal QTc of [address] or T wave changes suggestive of acute ischemia. No evidence of WPW. Early precordial RS transition. Xray(s) I reviewed the CXR imaging and noted no evidence of focal consolidation, pneumothorax, pleural effusion, or acutely widened mediastinum. I reviewed the radiologist's read which showed no acute process. Diagnoses as of 08/11/222004 Weakness I made all diagnostic, treatment, and disposition decisions in conjunction with the resident. I also supervised kinney portions of any procedures performed by the resident. For all further details of the patient's emergency department visit, please see his/her documentation. MD Cirilo Sutherland MD 08/11/222004 * Delaney Singer RN - 08/11/2022 2:32 PM EDT Pt c/o dizziness with nausea that began this weekend while sitting. documented in this [facility]2023 Emergency department Triage note* Delaney Singer RN - 08/11/2022 2:32 PM EDT Pt c/o dizziness with nausea that began this weekend while sitting. [id number] Emergency [facility] Note* Cirilo Briseno MD - 08/11/2022 2:32 PM EDT Emergency Department Encounter [facility] ED Patient: Aminata Barber : 1970 Date of Evaluation: 08/11/2022 I independently examined and evaluated Aminata Barber. This will serve as my Supervisory note and shared attestation. I performed a substantive portion ofthe visit including all aspects of the Medical Decision Making. In brief: 52-year-old female presents to the emergency department for evaluation of lightheadedness(as opposed to vertigo) at rest and with activity over the last 2 days. According to the records from [facility], patient's PMH includes anemia, asthma, diabetes, depression, migraine Focused exam: Constitutional: Well-developed and well-nourished. No distress. Neck: No nuchal rigidity. Cardiovascular: Normal rate, regular rhythm. No abnormal heart sounds heard. Pulmonary/Chest: Effort normal with no conversational dyspnea. Clear to auscultation bilaterally. Abdominal: Soft. No distension, tenderness, or guarding. No CVAT Musculoskeletal: No edema and no calf tenderness to palpation. Neuro: Normal gait Skin: Skin is warm and dry. Psychiatric: Normal mood and affect. Brief ED course/MDM: The patient presented with a chief complaint of lightheadedness. The differential diagnosis associated with this patient's presentation includes anemia, infection, electrolyte abnormality, arrhythmia. Our workup consisted of ordering/reviewing ECG read below, chest x-ray read below, CBC, BMP, UA and troponin. Diagnostic tests considered but not performed: d-dimer; I doubt PE Diagnostics interpreted by me: ECG(s) sinus rhythm 70 bpm with normal QTc of [address] or T wave changes suggestive of acute ischemia. No evidence of WPW. Early precordial RS transition. Xray(s) I reviewed the CXR imaging and noted no evidence of focal consolidation, pneumothorax, pleural effusion, or acutely widened mediastinum. I reviewed the radiologist's read which showed no acute process. Diagnoses as of 08/11/222004 Weakness I made all diagnostic, treatment, and disposition decisions in conjunction with the resident. I also supervised kinney portions of any procedures performed by the resident. For all further details of the patient's emergency department visit, please see his/her documentation. MD Cirilo Sutherland MD 08/11/222004 [facility] Work Phone: Evaluation note* Diagnosis Onset Date Resolution Status Encounter for screening for malignant neoplasm of colo n acute [facility] Work Phone: Evaluation note* Diagnosis Onset Date Resolution Status Acute bacterial sinusitis ac stebbins Antibiotic-induced yeast infection acute Acute bronchitis acute Acute pharyngitis, unspecified acute URI (upper respiratory infection) [facility] Work Phone: Evaluation note* Diagnosis Onset Date Resolution Status Acute bacterial sinusitis ac stebbins Antibiotic-induced yeast infection acute Acute bronchitis acute Acute pharyngitis, unspecified acute URI (upper respiratory infection) acute Breast enlargement acute Mixed incontinence urge and stress acute Encounter for routine gynecological examination noneactive [facility] Work Phone: Evaluation note* Diagnosis Weakness- Primary Other malaise and fatigue documented in this encounter [facility] assessment information available[facility] Work Phone: Reason for referral (narrative)No reason for referral information availableBlSt. Joseph's [facility] Work Phone: Summary Purpose Family History No Family History Records Found Relationship Condition Age at Onset Recorded Date/T sabrina mother Cardiac disease Unknown Diabetes mellitus Unknown father Malignant neoplasm Unknown Advance Directives No Advanced Directives Records Found Advance Directive Response Recorded Date/ Time Living Will No September 10, 2021 9:45am Power of Diplomatic Interpreter/Translator No September 10 9:45am Chief Complaint and Reason for Visit Chief Complaint Amb Documentation Reason for Visit Encounter for screen ing for malignant neoplasm of colon Chief Complaint Amb Documentation SCREENING Reason for Visit Encounter for screen ing for malignant neoplasm of colon Chief Complaint Sinus infection SORE THROAT/COUGH STRESS INCONTINENCE. RX HERE Reason for Visit Acute bacterial sinu sitis Antibiotic-induced yeast infection Acute bronchitis Acute pharyngitis, unspecified URI (upper respiratory infection) Chief Complaint Sinus infection SORE THROAT/COUGH Annual (PROJ MGR) STRESS INCONTINENCE. RX HERE MASS OF RIGHT BREAST Reason for Visit Acute bacterial sinu sitis Antibiotic-induced yeast infection Acute bronchitis Acute pharyngitis, unspecified URI (upper respiratory infection) Breast enlargement Mixed incontinence urge and stress Encounter for routine gynecological examination Chief Complaint Admit Date CAT BITES July 21, 2024 7:29a m Chief Complaint Admit Date CAT BITES July 21, 2024 7:29a m FASTING August 09, 2024 12:3 2pm Reason for Visit Admit Date Cat bite of forearm July 21, 2024 7:29a m Additional Source Comments INFORMATION SOURCE (unrecogn ized section and content) DATE CREATED AUTHOR 08/14/2017 [facility] DATE CREATED AUTHOR AUTHOR'S ORGANIZ ATION 08/13/[address] [facility] DATE CREATED AUTHOR AUTHOR'S ORGANIZ ATION 08/16/2024 [facility] Care Teams (unrecognized sec tion and content) Team Status: Active Member Role Status Dates Dr. Nani Oliveira MD Family Provider Active Carmen Hill NP-C Primary Care Provider Active Team Status: Inactive Member Role Status Dates Dr. Nani Oliveira MD Primary Care Provider, Referring Provider Active Leobardo PANTOJA PA Attending Provider Active Team Status: Inactive Member Role Status Dates Dr. Nani Oliveira MD Primary Care Provider, Referring Provider Active Neo PANTOJA PA Attending Provider Active Team Status: Active Member Role Status Dates Dr. Nani Oliveira MD Primary Care Provider Active Dr. Mily Steinberg MD Attending Provider Active Team Status: Inactive Member Role Status Dates Carmen Hill NP-C Primary Care Provide r, Attending Provider, Referring Provider Active Team Status: Inactive Member Role Status Dates Dr. Nani Oliveira MD Referring Provider Active Dr. Rosalinda Mosley MD Attending Provider Active Carmen Hill NP-C Primary Care Provider Active Team Status: Inactive Member Role Status Dates IRENE Bravo Primary Care Provider Active Dr. Rosalinda Mosley MD Attending Provider, Referr ing Provider Active Gate Person Relationship Specialty Start Date End Date RoxanneNani tabor [address] [place] [phone] PCP - General 05/20/17 Gate Person Relationship Specialty Start Date End Date Nani Oliveira [address] [phone] PCP - General 05/20/17 Team Status: Active Member Role Status Dates Dr. Nani Oliveira MD Family Provider Active Dr. Dillon Matthews DO Primary Care Provider Active Team Status: Inactive Member Role Status Dates Dr. Dillon Matthews DO Primary Care Prov ider, Attending Provider, Referring Provider Active Team Status: Inactive Member Role Status Dates Carmen Hill NP-C Primary Care Provider Active Start: July 21, 2024 End: July 21, 2024 IRENE Bravo Referring Provider Active St art: July 21, 2024 End: July 21, 2024 KIT Wisdom Attending Provider Active Sta rt: July 21, 2024 End: July 21, 2024 Team Status: Active Member Role Status Dates Dr. Vita Ayon MD Primary Care Provider Active Team Status: Inactive Member Role Status Dates IRENE Bravo Primary Care Provider Active Start: August 09, 2024 End: August 09, 2024 IRENE Bravo Attending Provider Active St art: August 09, 2024 End: August 09, 2024 IRENE Bravo Referring Provider Active St art: August 09, 2024 End: August 09, 2024 Goals (unrecognized section and content) Goals may be documented in a n alternate sectionGoals may be documented in an alternate sectionGoals may be documented in an alternate sectionGoals may be documented in an alternate sectionGoals may be documented in an alternate section Reason for Visit (unrecogniz ed section and content) Reason Comments Dizziness FOR RECORDS PERTAINING TO PATIENTS WHO ARE OR HAVE BEEN ENROLLED IN A CHEMICAL DEPENDENCY/SUBSTANCEABUSE PROGRAM, SOME INFORMATION MAY BE OMITTED. This clinical summary was aggregated from multiple sources. Caution should be exercised in using it in the provision of clinical care. This summary normalizes information from multiple sources, and as a consequence, information in this document may materially change the coding, format and clinical context of patient data. In addition, data may be omitted in some cases. CLINICAL DECISIONS SHOULD BE BASED ON THE PRIMARY CLINICAL RECORDS. [facility] [employer] [facility]. provides no warranty or guarantee of the accuracy or completeness of information in this document.
--- NOTE | 2024-09-02 07:38 | CT_ITS ---
PROCEDURE: LIMITED CHEST CT CARDIAC ONLY 09/02/2024 REASON FOR EXAM: CHEST PAIN HTN TECHNIQUE: CT performed for coronary artery calcium scoring. One or more dose reduction techniques were used (e.g., Automated exposure control, adjustment of the mA and/or kV according to patient size, use of iterative reconstruction technique). RADIATION DOSE SUMMARY: CTDlvol: 12.19 mGy DLP: 243.[address]/Limited Chest CT Cardiac Only IMPRESSION: Limited imaging of the lungs demonstrates no acute process. No evidence of cardiomegaly. No pleural effusion or pneumothorax is seen in visualized areas. No adenopathy is noted. The visualized upper abdomen demonstrates no significant abnormality. Reading Location: [address]
--- NOTE | 2024-09-04 17:16 | CA.SCORE ---
Calcium Scoring Date of Study:: 09/02/24 Indications Indications: Chest pain hypertension Coronary Calcium Scoring: High-resolution Computed Tomographic imaging of the chest was performed on [09/02/2024], with particular attention paid to the coronary arteries. Images from the examination were analyzed for the presence and extent of coronary artery calcification , using coronary calcium quantification software. The patient tolerated the procedure well and there were no complications. The results of the coronary calcification analysis are provided below. Findings Coronary Artery Left Main (LM): 0 Left Anterior Descending (LAD): 0 Left Circumflex (LCX): 0 Right Coronary Artery (RCA): 0 Total Agatston Score: 0 Percentile Rankin% Calcium Scoring Interpretation: Different methods to categorize the overall amount of coronary plaque. Overall amount CAC SIS Visual of coronary plaque P1 Mild -100 <2 1-2 vessels with mild amount of plaque P2 Moderate 101-300 3-4 1-2 vessels with moderate amount, 3 vessels with mild amount of plaque P3 Severe 301-999 5-7 3 vessels with moderate amount, 1 vessel with severe amount of plaque P4 Extensive >1000 >8 2-3 vessels with severe amount of plaque Conclusion: No atherosclerotic plaquing noted.
== END | disposition home or self-care (01) ==
LOC: CT 07:32
PROVIDERS: PCP Family Medicine; Referring Provider Family Medicine; Visit Provider Family Medicine
DX: I10 Essential (primary) hypertension (principal); R07.9 Chest pain, unspecified
CPT/HCPCS: 75571; 76380

== ENCOUNTER → 2024-10-19 | Outpatient (CLI) | payer SELFPAY ==
--- NOTE | 2024-10-19 07:30 | BI_ITS ---
EXAM: SCRN MAMM (CAD)W/CIRILO BILAT DATE: 10/19/2024 CLINICAL HISTORY: F, Age 54 y/o , SCREEN FOR BREAST CANCER No family history. TECHNIQUE: SCRN MAMM (CAD)W/CIRILO BILAT COMPARISON: Prior exam(s) dated prior study dated September 30, 2023.. FINDINGS: TISSUE DENSITY: The breasts are heterogeneously dense, which may obscure small masses. Bilateral Breast Mammographic Findings: No significant masses, calcifications or other abnormalities are identified. Stable asymmetry of breast tissue were more breast tissue is seen in the upper-outer quadrant of the left breast as compared to the right side. Stable benign-appearing bilateral axillary lymph nodes. No suspicious masses, areas of developing architectural distortion, or suspicious calcifications. There has been no significant interval change. BI/SCRN MAMM (CAD)W/CIRILO BILAT IMPRESSION: Stable examination. OVERALL FINAL ASSESSMENT BI-RADS 2: BENIGN RECOMMENDATION: Routine annual follow-up in 1 Year A letter with findings and recommendations will be mailed to the patient. Reading Location: [facility]
== END | disposition home or self-care (01) ==
PROVIDERS: PCP Family Medicine; Referring Provider Nurse Practitioner Women's Health; Visit Provider Nurse Practitioner Women's Health
DX: Z12.31 Encounter for screening mammogram for malignant neoplasm of breast (principal)
CPT/HCPCS: 77063; 77067